=== PATIENT | female | born 1965 | race Caucasian/White ===

== ENCOUNTER 2016-08-31 07:38 | Emergency (ER) | payer MEDICAID ==
[~2016-08-31] VITALS: Ht 154.9 cm; Wt 61.2 kg
[2016-08-31 07:42] VITALS: BP 145/77
== END 2016-08-31 08:17 | disposition home or self-care (01) ==
LOC: ER 07:38
DX: L84 Corns and callosities (principal); M21.611 Bunion of right foot; I10 Essential (primary) hypertension; F17.210 Nicotine dependence, cigarettes, uncomplicated; Z98.51 Tubal ligation status; Z88.0 Allergy status to penicillin

== ENCOUNTER 2016-10-07 19:51 | Emergency (ER) | payer MEDICAID ==
[~2016-10-07] VITALS: Ht 154.9 cm; Wt 63.5 kg
[2016-10-07 20:03] VITALS: BP 149/77
[2016-10-07 21:05] LABS: Basophils # (auto) 0.1 uL; Basophils % (auto) 0.8 % (0.0-2.0); CONDITION Y; Eosinophils # (auto) 0.4 uL; Eosinophils % (auto) 2.8 % (0.0-7.0); Hematocrit 41.1 % (36.0-46.0); Hemoglobin 13.6 g/dL (12.2-16.2); Lymphocytes # (auto) 3.2 uL; Lymphocytes % (auto) 25.1 % (10.0-50.0); Mean Corpuscular Volume 87.8 fL (80.0-100.0); Monocytes # (auto) 0.8 uL; Monocytes % (auto) 6.3 % (0.0-12.0); Neutrophils # (auto) 8.3 uL; Platelet Count (auto) 280 10^3/uL (140-450); Red Cell Distribution Width 14.5 % (11.6-16.0); White Blood Cell 12.7 10^3/uL (4.4-10.8)
[2016-10-07 21:10] LABS: Urine Bilirubin Negative (Negative); Urine Glucose Normal (Normal); Urine Urobilinogen Normal (Negative)
[2016-10-07 21:11] LABS: Urine Blood 1+ /uL (Negative); Urine Ketone Negative (Negative); Urine Nitrite Negative (Negative); Urine RBC 1 /hpf (0 - 4); Urine Squamous Epithelial Cell FEW /hpf (<5); Urine pH 6.5 (5.0-8.0)
[2016-10-07 21:36] LABS: Albumin 3.6 g/dL (3.4-5.0); Alkaline Phosphatase 69 U/L (45-117); Anion Gap 9 (5-15); Aspartate Aminotransferase 14 U/L (15-37); Bilirubin, Total 0.1 mg/dL (0.2-1.0); Blood Urea Nitrogen 12 mg/dL (7-18); Calcium 8.6 mg/dL (8.5-10.1); Carbon Dioxide 25 mmol/L (21-32); Chloride 104 mmol/L (98-107); GFR African American 129 mL/min; GFR Non-African American 107 mL/min; Glucose 94 mg/dL (74-106); Magnesium 2.1 mg/dL (1.6-2.6); Potassium 3.7 mmol/L (3.5-5.1); Sodium 138 mmol/L (136-145); Total Protein 7.3 g/dL (6.4-8.2)
[2016-10-07 21:40] LABS: Urine Color Straw (Yellow)
[2016-10-07 23:01] LABS: INR 0.92 (0.9-1.15); Partial Thromboplastin Time 27.6 sec (22.64-33.71)
== END 2016-10-08 01:55 | disposition left against medical advice (07) ==
LOC: ER 19:52
DX: R07.9 Chest pain, unspecified (principal); Z53.21 Procedure and treatment not carried out due to patient leaving prior to being seen by health care provider
CPT/HCPCS: 36415; 71020; 80053; 81001; 83735; 84443; 84484; 85025; 85610; 85730; 93005

== ENCOUNTER 2016-10-13 17:16 | Emergency (ER) | payer MEDICAID ==
[~2016-10-13] VITALS: Ht 154.9 cm; Wt 61.2 kg
[2016-10-13 18:07] LABS: Basophils # (auto) 0.1 uL; Basophils % (auto) 0.9 % (0.0-2.0); Eosinophils # (auto) 0.3 uL; Eosinophils % (auto) 2.9 % (0.0-7.0); Hematocrit 41.7 % (36.0-46.0); Hemoglobin 14.1 g/dL (12.2-16.2); Lymphocytes # (auto) 4.5 uL; Lymphocytes % (auto) 40.2 % (10.0-50.0); Mean Corpuscular Hemoglobin 29.7 pg (28.0-32.0); Mean Corpuscular Hgb Conc. 33.9 g/dL (32.0-36.0); Mean Corpuscular Volume 87.7 fL (80.0-100.0); Mean Platelet Volume 9.5 fL (7.4-10.4); Monocytes % (auto) 8.8 % (0.0-12.0); Neutrophils # (auto) 5.3 uL; Neutrophils % (auto) 47.2 % (37.0-80.0); Nucleated Red Blood Cells % 0.1 %; Platelet Count (auto) 260 10^3/uL (140-450); Red Cell Distribution Width 14.1 % (11.6-16.0); White Blood Cell 11.2 10^3/uL (4.4-10.8)
[2016-10-13 18:33] LABS: Albumin 3.9 g/dL (3.4-5.0); Alkaline Phosphatase 72 U/L (45-117); Anion Gap 9 (5-15); Aspartate Aminotransferase 14 U/L (15-37); Bilirubin, Total 0.3 mg/dL (0.2-1.0); Blood Urea Nitrogen 12 mg/dL (7-18); Calcium 9.5 mg/dL (8.5-10.1); Carbon Dioxide 26 mmol/L (21-32); Chloride 103 mmol/L (98-107); GFR African American 137 mL/min; GFR Non-African American 113 mL/min; Glucose 95 mg/dL (74-106); Potassium 3.6 mmol/L (3.5-5.1); Sodium 138 mmol/L (136-145); Total Protein 7.8 g/dL (6.4-8.2)
[2016-10-13 22:50] LABS: Urine Bilirubin Negative (Negative); Urine Blood 1+ /uL (Negative); Urine Color Yellow (Yellow); Urine Glucose Normal (Normal); Urine Ketone Negative (Negative); Urine Mucus FEW (None Seen); Urine Nitrite Negative (Negative); Urine RBC 5 /hpf (0 - 4); Urine Squamous Epithelial Cell FEW /hpf (<5); Urine Urobilinogen Normal (Negative)
[2016-10-14] MEDS ORDERED: HYDROcodone-ACET 5/325MG TAB PO ONE
[2016-10-14 00:51] VITALS: BP 135/82
== END 2016-10-14 02:26 | disposition home or self-care (01) ==
LOC: ER 17:31
DX: R07.9 Chest pain, unspecified (principal); R09.1 Pleurisy; M54.2 Cervicalgia; I10 Essential (primary) hypertension; Z88.0 Allergy status to penicillin
CPT/HCPCS: 36415; 71010; 80053; 81001; 84484; 85025; 93005

== ENCOUNTER 2017-04-03 08:12 | Emergency (ER) | payer MEDICAID ==
[~2017-04-03] VITALS: Ht 154.9 cm; Wt 63.5 kg
[2017-04-03 08:12] VITALS: BP 159/87
[2017-04-03 09:34] LABS: Basophils # (auto) 0.1 uL; Eosinophils # (auto) 0.4 uL; Eosinophils % (auto) 3.6 % (0.0-7.0); Hematocrit 42.5 % (36.0-46.0); Hemoglobin 14.1 g/dL (12.2-16.2); Lymphocytes # (auto) 2.9 uL; Lymphocytes % (auto) 23.5 % (10.0-50.0); Mean Corpuscular Hemoglobin 28.7 pg (28.0-32.0); Mean Corpuscular Hgb Conc. 33.2 g/dL (32.0-36.0); Mean Corpuscular Volume 86.5 fL (80.0-100.0); Monocytes # (auto) 0.7 uL; Monocytes % (auto) 5.9 % (0.0-12.0); Neutrophils # (auto) 8.2 uL; Platelet Count (auto) 286 10^3/uL (140-450); Red Blood Cells 4.91 10^6/uL (4.0-5.20); Red Cell Distribution Width 13.7 % (11.8-14.3); White Blood Cell 12.4 10^3/uL (4.4-10.8)
[2017-04-03 09:51] LABS: Alanine Aminotransferase 21 U/L (13-56); Albumin 3.7 g/dL (3.4-5.0); Anion Gap 3 (5-15); Aspartate Aminotransferase 19 U/L (15-37); BUN/Creatinine Ratio 18.2; Blood Urea Nitrogen 12 mg/dL (7-18); Calcium 8.6 mg/dL (8.5-10.1); Carbon Dioxide 31 mmol/L (21-32); Chloride 103 mmol/L (98-107); GFR African American 122 mL/min; GFR Non-African American 101 mL/min; Glucose 92 mg/dL (74-106); Potassium 4.4 mmol/L (3.5-5.1); Sodium 137 mmol/L (136-145)
[2017-04-03 09:56] LABS: Alkaline Phosphatase 73 U/L (45-117); Bilirubin, Total 0.2 mg/dL (0.2-1.0)
== END 2017-04-03 12:52 | disposition left against medical advice (07) ==
LOC: ER 08:12
DX: R07.9 Chest pain, unspecified (principal); I10 Essential (primary) hypertension; F17.210 Nicotine dependence, cigarettes, uncomplicated; Z88.0 Allergy status to penicillin
CPT/HCPCS: 36415; 71046; 80053; 84484; 85025; 93005

== ENCOUNTER 2017-04-05 08:21 | Emergency (ER) | payer MEDICAID ==
[~2017-04-05] VITALS: Ht 154.9 cm; Wt 63.5 kg
[2017-04-05 09:00] VITALS: BP 153/87
[2017-04-05] MEDS ORDERED: KETOROLAC TROMETH 60MG/2ML VIAL IM ONE (09:15)
== END 2017-04-05 09:43 | disposition home or self-care (01) ==
LOC: ER 08:21
DX: S16.1XXA Strain of muscle, fascia and tendon at neck level, initial encounter (principal); M54.12 Radiculopathy, cervical region; F17.210 Nicotine dependence, cigarettes, uncomplicated; F12.10 Cannabis abuse, uncomplicated; I10 Essential (primary) hypertension; Z98.51 Tubal ligation status; Z88.0 Allergy status to penicillin; X58.XXXA Exposure to other specified factors, initial encounter; Y93.89 Activity, other specified; Y99.8 Other external cause status; Y92.89 Other specified places as the place of occurrence of the external cause
CPT/HCPCS: 72040; 93005; 96372; 99284; J1885

== ENCOUNTER 2018-03-25 19:18 | Emergency (ER) | payer MEDICAID ==
[~2018-03-25] VITALS: Ht 154.9 cm; Wt 65.8 kg
[2018-03-25 21:10] VITALS: BP 132/70
[2018-03-26] MEDS ORDERED: methylPREDNISolone SOD SUCC 125 MG/2 ML VL IM ONE
[2018-03-26] MEDS ORDERED: KETOROLAC TROMETH 60MG/2ML VIAL IM ONE
== END 2018-03-26 00:51 | disposition home or self-care (01) ==
LOC: ER 19:28
DX: S43.301A Subluxation of unspecified parts of right shoulder girdle, initial encounter (principal); I10 Essential (primary) hypertension; F17.210 Nicotine dependence, cigarettes, uncomplicated; F12.10 Cannabis abuse, uncomplicated; Z98.51 Tubal ligation status; Z88.0 Allergy status to penicillin; W01.0XXA Fall on same level from slipping, tripping and stumbling without subsequent striking against object, initial encounter; Y93.E8 Activity, other personal hygiene; Y99.8 Other external cause status; Y92.003 Bedroom of unspecified non-institutional (private) residence as the place of occurrence of the external cause
CPT/HCPCS: 72040; 73030; 96372; 99283; J1885; J2930

== ENCOUNTER 2018-06-22 10:31 | Emergency (ER) | payer MEDICAID ==
[~2018-06-22] VITALS: Ht 154.9 cm; Wt 65.8 kg
[2018-06-22] MEDS ORDERED: ASPirin 81 mg TAB PO ONE (11:00)
[2018-06-22 11:36] LABS: Basophils # (auto) 0.1 uL; Eosinophils # (auto) 0.3 uL; Hematocrit 41.1 % (36.0-46.0); Hemoglobin 13.7 g/dL (12.2-16.2); Lymphocytes # (auto) 2.2 uL; Lymphocytes % (auto) 21.1 % (10.0-50.0); Mean Corpuscular Hgb Conc. 33.4 g/dL (32.0-36.0); Mean Corpuscular Volume 86.7 fL (80.0-100.0); Monocytes # (auto) 0.9 uL; Monocytes % (auto) 8.4 % (0.0-12.0); Neutrophils # (auto) 6.8 uL; Neutrophils % (auto) 66.5 % (37.0-80.0); Platelet Count (auto) 235 10^3/uL (140-450); Red Blood Cells 4.75 10^6/uL (4.0-5.20); White Blood Cell 10.3 10^3/uL (4.4-10.8)
[2018-06-22 11:54] LABS: Albumin 3.7 g/dL (3.4-5.0); Anion Gap 5 (5-15); Blood Urea Nitrogen 14 mg/dL (7-18); Calcium 8.8 mg/dL (8.5-10.1); Carbon Dioxide 27 mmol/L (21-32); Chloride 107 mmol/L (98-107); Glucose 91 mg/dL (74-106); Magnesium 2.1 mg/dL (1.6-2.6); Potassium 3.9 mmol/L (3.5-5.1); Sodium 139 mmol/L (136-145)
[2018-06-22 12:00] LABS: Alanine Aminotransferase 23 U/L (13-56); Alkaline Phosphatase 80 U/L (45-117); Aspartate Aminotransferase 20 U/L (15-37); BUN/Creatinine Ratio 21.5; Bilirubin, Total 0.3 mg/dL (0.2-1.0); GFR African American 124 mL/min; GFR Non-African American 102 mL/min; Total Protein 7.7 g/dL (6.4-8.2)
[2018-06-22 13:49] VITALS: BP 124/89
== END 2018-06-22 14:33 | disposition home or self-care (01) ==
LOC: ER 10:33
DX: R07.89 Other chest pain (principal); F41.9 Anxiety disorder, unspecified; I10 Essential (primary) hypertension; F17.210 Nicotine dependence, cigarettes, uncomplicated; F12.10 Cannabis abuse, uncomplicated; R42 Dizziness and giddiness; Z88.0 Allergy status to penicillin
CPT/HCPCS: 36415; 70450; 71045; 80053; 83735; 84484; 85025; 93005; 94761

== ENCOUNTER 2019-07-25 13:07 | Emergency (ER) | payer MEDICAID ==
[~2019-07-25] VITALS: Ht 154.9 cm; Wt 65.8 kg
[2019-07-25 13:45] LABS: Basophils # (auto) 0.1 10 ^3/uL (0-0.2); Eosinophils # (auto) 0.4 10 ^3/uL (0-0.8); Eosinophils % (auto) 2.8 % (0.0-7.0); Hematocrit 42.3 % (36.0-46.0); Hemoglobin 13.9 g/dL (12.2-16.2); Lymphocytes # (auto) 2.4 10 ^3/uL (0.4-5.4); Lymphocytes % (auto) 17.9 % (10.0-50.0); Mean Corpuscular Hemoglobin 28.5 pg (28.0-32.0); Mean Corpuscular Hgb Conc. 32.8 g/dL (32.0-36.0); Mean Corpuscular Volume 86.8 fL (80.0-100.0); Monocytes # (auto) 0.9 10 ^3/uL (0-1.3); Monocytes % (auto) 6.6 % (0.0-12.0); Neutrophils # (auto) 9.6 10 ^3/uL (1.6-8.6); Neutrophils % (auto) 71.7 % (37.0-80.0); Nucleated Red Blood Cells % 0.1 %; Platelet Count (auto) 258 10^3/uL (140-450); Red Blood Cells 4.87 10^6/uL (4.0-5.20); Red Cell Distribution Width 14.1 % (11.8-14.3); White Blood Cell 13.4 10^3/uL (4.4-10.8)
[2019-07-25] MEDS ORDERED: traMADol HCL 50 MG TAB PO ONE (14:00)
[2019-07-25 14:02] LABS: Alanine Aminotransferase 20 U/L (13-56); Albumin 3.8 g/dL (3.4-5.0); Anion Gap 6 (5-15); Aspartate Aminotransferase 19 U/L (15-37); BUN/Creatinine Ratio 20.5; Blood Urea Nitrogen 24 mg/dL (7-18); Calcium 8.7 mg/dL (8.5-10.1); Carbon Dioxide 24 mmol/L (21-32); Chloride 104 mmol/L (98-107); GFR African American 62 mL/min; GFR Non-African American 52 mL/min; Glucose 101 mg/dL (74-106); Magnesium 2.1 mg/dL (1.6-2.6); Potassium 4.1 mmol/L (3.5-5.1); Sodium 134 mmol/L (136-145)
[2019-07-25 14:07] LABS: Alkaline Phosphatase 87 U/L (45-117); Bilirubin, Total 0.4 mg/dL (0.2-1.0); Total Protein 7.7 g/dL (6.4-8.2)
[2019-07-25 17:29] VITALS: BP 159/86
== END 2019-07-25 17:56 | disposition home or self-care (01) ==
LOC: ER 13:07
DX: R07.89 Other chest pain (principal); M54.9 Dorsalgia, unspecified; I10 Essential (primary) hypertension; F17.210 Nicotine dependence, cigarettes, uncomplicated
CPT/HCPCS: 36415; 71046; 80053; 83735; 84484; 85025; 93005

== ENCOUNTER 2019-07-26 20:10 | Emergency (ER) | payer MEDICAID | END 2019-07-26 21:22 | disposition left against medical advice (07) | LOC: ER 20:10 | DX: R10.9 Unspecified abdominal pain (principal); Z53.21 Procedure and treatment not carried out due to patient leaving prior to being seen by health care provider ==

== ENCOUNTER 2019-07-27 06:58 | Emergency (ER) | payer MEDICAID ==
[~2019-07-27] VITALS: Ht 152.4 cm; Wt 65.8 kg
[2019-07-27 07:40] VITALS: BP 120/65
[2019-07-27 07:58] LABS: Urine Bacteria FEW /hpf (None Seen); Urine Blood 2+ /uL (Negative); Urine Hyaline Cast FEW /lpf (0 - 2); Urine Mucus FEW (None Seen); Urine Specific Gravity 1.022 (1.001-1.035); Urine WBC 6 /hpf (0 - 5)
[2019-07-27] MEDS ORDERED: SODIUM CHLORIDE 0.9% 1,000 ML IV ONE ×2 (08:09)
[2019-07-27 08:29] LABS: Basophils # (auto) 0.1 10 ^3/uL (0-0.2); Basophils % (auto) 1.2 % (0.0-2.0); Eosinophils # (auto) 0.3 10 ^3/uL (0-0.8); Eosinophils % (auto) 3.9 % (0.0-7.0); Hematocrit 41.8 % (36.0-46.0); Hemoglobin 14.3 g/dL (12.2-16.2); Lymphocytes # (auto) 2.3 10 ^3/uL (0.4-5.4); Mean Corpuscular Hemoglobin 29.5 pg (28.0-32.0); Mean Corpuscular Hgb Conc. 34.1 g/dL (32.0-36.0); Mean Corpuscular Volume 86.7 fL (80.0-100.0); Monocytes # (auto) 0.7 10 ^3/uL (0-1.3); Monocytes % (auto) 8.1 % (0.0-12.0); Neutrophils # (auto) 4.9 10 ^3/uL (1.6-8.6); Neutrophils % (auto) 58.8 % (37.0-80.0); Nucleated Red Blood Cells % 0.1 %; Platelet Count (auto) 257 10^3/uL (140-450); Red Blood Cells 4.83 10^6/uL (4.0-5.20); Red Cell Distribution Width 13.8 % (11.8-14.3); White Blood Cell 8.3 10^3/uL (4.4-10.8)
[2019-07-27 08:43] LABS: Alanine Aminotransferase 19 U/L (13-56); Albumin 3.8 g/dL (3.4-5.0); Anion Gap 7 (5-15); Aspartate Aminotransferase 16 U/L (15-37); BUN/Creatinine Ratio 24.7; Blood Urea Nitrogen 19 mg/dL (7-18); Calcium 8.9 mg/dL (8.5-10.1); Carbon Dioxide 25 mmol/L (21-32); Chloride 108 mmol/L (98-107); GFR African American 101 mL/min; GFR Non-African American 84 mL/min; Glucose 89 mg/dL (74-106); Potassium 4.1 mmol/L (3.5-5.1); Sodium 140 mmol/L (136-145)
[2019-07-27 08:47] LABS: Alkaline Phosphatase 77 U/L (45-117); Bilirubin, Total 0.5 mg/dL (0.2-1.0); Total Protein 7.7 g/dL (6.4-8.2)
== END 2019-07-27 09:52 | disposition home or self-care (01) ==
LOC: ER 06:58
DX: N20.0 Calculus of kidney (principal); R31.9 Hematuria, unspecified; E86.0 Dehydration; F17.210 Nicotine dependence, cigarettes, uncomplicated; I10 Essential (primary) hypertension; Z98.51 Tubal ligation status; Z88.0 Allergy status to penicillin
CPT/HCPCS: 36415; 74176; 80053; 81001; 84484; 85025; 93005; 96360; 99285; J7030

== ENCOUNTER 2020-05-03 15:59 | Emergency (ER) | payer MEDICAID ==
[~2020-05-03] VITALS: Ht 152.4 cm; Wt 67.1 kg
[2020-05-03 16:50] LABS: Basophils # (auto) 0.1 10 ^3/uL (0-0.2); Basophils % (auto) 0.9 % (0.0-2.0); Eosinophils # (auto) 0.2 10 ^3/uL (0-0.8); Eosinophils % (auto) 2.2 % (0.0-7.0); Hematocrit 39.9 % (36.0-46.0); Hemoglobin 13.7 g/dL (12.2-16.2); Lymphocytes # (auto) 3.1 10 ^3/uL (0.4-5.4); Lymphocytes % (auto) 29.1 % (10.0-50.0); Mean Corpuscular Hemoglobin 29.9 pg (28.0-32.0); Mean Corpuscular Hgb Conc. 34.3 g/dL (32.0-36.0); Mean Corpuscular Volume 87.2 fL (80.0-100.0); Monocytes # (auto) 0.7 10 ^3/uL (0-1.3); Neutrophils # (auto) 6.5 10 ^3/uL (1.6-8.6); Neutrophils % (auto) 60.8 % (37.0-80.0); Nucleated Red Blood Cells % 0.1 %; Platelet Count (auto) 228 10^3/uL (140-450); Red Blood Cells 4.57 10^6/uL (4.0-5.20); Red Cell Distribution Width 13.7 % (11.8-14.3); White Blood Cell 10.6 10^3/uL (4.4-10.8)
[2020-05-03 17:04] LABS: Alanine Aminotransferase 20 U/L (13-56); Albumin 3.9 g/dL (3.4-5.0); Anion Gap 8 (5-15); Aspartate Aminotransferase 19 U/L (15-37); BUN/Creatinine Ratio 18.8; Blood Urea Nitrogen 13 mg/dL (7-18); Calcium 8.6 mg/dL (8.5-10.1); Carbon Dioxide 27 mmol/L (21-32); Chloride 103 mmol/L (98-107); GFR African American 114 mL/min; GFR Non-African American 95 mL/min; Glucose 94 mg/dL (74-106); Potassium 3.7 mmol/L (3.5-5.1); Sodium 138 mmol/L (136-145)
[2020-05-03 17:09] LABS: Alkaline Phosphatase 84 U/L (45-117); Bilirubin, Total 0.3 mg/dL (0.2-1.0); Total Protein 7.5 g/dL (6.4-8.2)
[2020-05-03 18:41] VITALS: BP 155/93
== END 2020-05-03 20:34 | disposition home or self-care (01) ==
LOC: ER 16:01
DX: I10 Essential (primary) hypertension (principal); F17.210 Nicotine dependence, cigarettes, uncomplicated; F12.10 Cannabis abuse, uncomplicated; Z88.0 Allergy status to penicillin; Z98.51 Tubal ligation status
CPT/HCPCS: 36415; 71046; 80053; 84484; 85025; 93005

== ENCOUNTER 2020-05-09 21:29 | Emergency (ER) | payer MEDICAID ==
[~2020-05-09] VITALS: Ht 152.4 cm; Wt 68.0 kg
[2020-05-09 22:58] LABS: Basophils # (auto) 0.1 10 ^3/uL (0-0.2); Basophils % (auto) 1.1 % (0.0-2.0); Eosinophils # (auto) 0.2 10 ^3/uL (0-0.8); Hematocrit 41.4 % (36.0-46.0); Lymphocytes % (auto) 25.9 % (10.0-50.0); Mean Corpuscular Hemoglobin 29.3 pg (28.0-32.0); Mean Corpuscular Volume 86.2 fL (80.0-100.0); Monocytes # (auto) 0.9 10 ^3/uL (0-1.3); Monocytes % (auto) 7.3 % (0.0-12.0); Neutrophils # (auto) 7.5 10 ^3/uL (1.6-8.6); Neutrophils % (auto) 63.7 % (37.0-80.0); Nucleated Red Blood Cells % 0.1 %; Platelet Count (auto) 254 10^3/uL (140-450); Red Cell Distribution Width 13.8 % (11.8-14.3); White Blood Cell 11.7 10^3/uL (4.4-10.8)
[2020-05-09 23:19] LABS: Anion Gap 7 (5-15); Blood Urea Nitrogen 14 mg/dL (7-18); Calcium 9.2 mg/dL (8.5-10.1); Carbon Dioxide 24 mmol/L (21-32); Chloride 108 mmol/L (98-107); Glucose 112 mg/dL (74-106); Potassium 3.9 mmol/L (3.5-5.1); Sodium 139 mmol/L (136-145)
[2020-05-09 23:26] LABS: Alanine Aminotransferase 21 U/L (13-56); Alkaline Phosphatase 87 U/L (45-117); Aspartate Aminotransferase 17 U/L (15-37); BUN/Creatinine Ratio 24.1; Bilirubin, Total 0.3 mg/dL (0.2-1.0); GFR African American 140 mL/min; GFR Non-African American 116 mL/min; Total Protein 7.8 g/dL (6.4-8.2)
[2020-05-10 00:10] VITALS: BP 138/79
== END 2020-05-10 00:17 | disposition home or self-care (01) ==
LOC: ER 21:29
DX: S66.912A Strain of unspecified muscle, fascia and tendon at wrist and hand level, left hand, initial encounter (principal); S66.911A Strain of unspecified muscle, fascia and tendon at wrist and hand level, right hand, initial encounter; M47.812 Spondylosis without myelopathy or radiculopathy, cervical region; I10 Essential (primary) hypertension; F17.210 Nicotine dependence, cigarettes, uncomplicated; Z88.0 Allergy status to penicillin; X58.XXXA Exposure to other specified factors, initial encounter; Y93.89 Activity, other specified; Y92.89 Other specified places as the place of occurrence of the external cause; Y99.8 Other external cause status
CPT/HCPCS: 36415; 72125; 73090; 80053; 84484; 85025; 93005

== ENCOUNTER 2020-05-13 16:00 | Emergency (ER) | payer MEDICAID ==
[~2020-05-13] VITALS: Ht 152.4 cm; Wt 67.1 kg
[2020-05-13 16:03] VITALS: BP 157/86
== END 2020-05-13 21:08 | disposition home or self-care (01) ==
LOC: ER 16:00
DX: E04.1 Nontoxic single thyroid nodule (principal); I10 Essential (primary) hypertension; Z88.0 Allergy status to penicillin
CPT/HCPCS: 70490

== ENCOUNTER 2020-05-17 17:03 | Emergency (ER) | payer MEDICAID ==
[~2020-05-17] VITALS: Ht 152.4 cm; Wt 65.8 kg
[2020-05-17 17:33] VITALS: BP 136/79
== END 2020-05-17 20:56 | disposition home or self-care (01) ==
LOC: ER 17:07
DX: M48.02 Spinal stenosis, cervical region (principal); R20.2 Paresthesia of skin; Z88.0 Allergy status to penicillin
CPT/HCPCS: 93005

== ENCOUNTER 2020-05-20 19:51 | Emergency (ER) | payer MEDICAID ==
[~2020-05-20] VITALS: Ht 152.4 cm; Wt 67.1 kg
[2020-05-20 20:07] VITALS: BP 158/78
== END 2020-05-20 23:31 | disposition left against medical advice (07) ==
LOC: ER 19:56
DX: M54.5 Low back pain (principal); Z53.21 Procedure and treatment not carried out due to patient leaving prior to being seen by health care provider
CPT/HCPCS: 72100; 72170

== ENCOUNTER 2020-05-21 08:32 | Emergency (ER) | payer MEDICAID ==
[~2020-05-21] VITALS: Ht 152.4 cm; Wt 67.1 kg
[2020-05-21 09:30] LABS: Urine Bacteria FEW /hpf (None Seen); Urine Blood 2+ /uL (Negative); Urine Specific Gravity 1.009 (1.001-1.035); Urine WBC <1 /hpf (0 - 5)
[2020-05-21] MEDS ORDERED: CARISOPRODOL 350 MG TAB PO ONE (09:30)
[2020-05-21 09:47] LABS: Basophils # (auto) 0.1 10 ^3/uL (0-0.2); Eosinophils # (auto) 0.2 10 ^3/uL (0-0.8); Eosinophils % (auto) 1.7 % (0.0-7.0); Hematocrit 43.5 % (36.0-46.0); Hemoglobin 14.6 g/dL (12.2-16.2); Lymphocytes # (auto) 2.3 10 ^3/uL (0.4-5.4); Lymphocytes % (auto) 20.3 % (10.0-50.0); Mean Corpuscular Hemoglobin 29.2 pg (28.0-32.0); Mean Corpuscular Hgb Conc. 33.6 g/dL (32.0-36.0); Monocytes # (auto) 0.8 10 ^3/uL (0-1.3); Monocytes % (auto) 7.2 % (0.0-12.0); Neutrophils # (auto) 7.8 10 ^3/uL (1.6-8.6); Neutrophils % (auto) 69.8 % (37.0-80.0); Nucleated Red Blood Cells % 0.1 %; Platelet Count (auto) 261 10^3/uL (140-450); Red Blood Cells 4.99 10^6/uL (4.0-5.20); White Blood Cell 11.2 10^3/uL (4.4-10.8)
[2020-05-21 10:10] LABS: Calcium 9.4 mg/dL (8.5-10.1); Potassium 3.9 mmol/L (3.5-5.1)
[2020-05-21 10:13] LABS: BUN/Creatinine Ratio 23.9; Bilirubin, Total 0.3 mg/dL (0.2-1.0); Total Protein 7.7 g/dL (6.4-8.2)
[2020-05-21 11:26] VITALS: BP 126/76
== END 2020-05-21 11:39 | disposition home or self-care (01) ==
LOC: ER 08:32
DX: S39.011A Strain of muscle, fascia and tendon of abdomen, initial encounter (principal); E86.0 Dehydration; N28.89 Other specified disorders of kidney and ureter; N28.9 Disorder of kidney and ureter, unspecified; F17.210 Nicotine dependence, cigarettes, uncomplicated; I10 Essential (primary) hypertension; Z88.0 Allergy status to penicillin; F12.10 Cannabis abuse, uncomplicated; M79.18 Myalgia, other site; X58.XXXA Exposure to other specified factors, initial encounter; Y93.89 Activity, other specified; Y92.89 Other specified places as the place of occurrence of the external cause; Y99.8 Other external cause status
CPT/HCPCS: 36415; 74176; 80053; 81001; 85025; 93005

== ENCOUNTER 2020-05-26 12:42 | Emergency (ER) | payer MEDICAID ==
[~2020-05-26] VITALS: Ht 152.4 cm; Wt 67.1 kg
[2020-05-26 13:07] VITALS: BP 134/77
[2020-05-26 13:47] LABS: Urine WBC None Seen /hpf (0 - 5)
[2020-05-26 13:53] LABS: Urine Bacteria NONE SEEN /hpf (None Seen); Urine Blood 1+ /uL (Negative); Urine Mucus FEW (None Seen); Urine Specific Gravity 1.002 (1.001-1.035)
== END 2020-05-26 15:09 | disposition home or self-care (01) ==
LOC: ER 12:42
DX: N28.9 Disorder of kidney and ureter, unspecified (principal); R82.90 Unspecified abnormal findings in urine; F17.210 Nicotine dependence, cigarettes, uncomplicated; I10 Essential (primary) hypertension; Z88.0 Allergy status to penicillin
CPT/HCPCS: 81001

== ENCOUNTER 2020-12-23 07:25 | Emergency (ER) | payer MEDICAID ==
[~2020-12-23] VITALS: Ht 154.9 cm; Wt 68.0 kg
[2020-12-23 08:04] LABS: Basophils # (auto) 0.1 10 ^3/uL (0-0.2); Basophils % (auto) 0.9 % (0.0-2.0); Eosinophils # (auto) 0.2 10 ^3/uL (0-0.8); Eosinophils % (auto) 2.6 % (0.0-7.0); Hemoglobin 14.1 g/dL (12.2-16.2); Lymphocytes # (auto) 2.1 10 ^3/uL (0.4-5.4); Lymphocytes % (auto) 21.9 % (10.0-50.0); Mean Corpuscular Hemoglobin 28.7 pg (28.0-32.0); Mean Corpuscular Hgb Conc. 32.8 g/dL (32.0-36.0); Mean Corpuscular Volume 87.6 fL (80.0-100.0); Monocytes # (auto) 0.6 10 ^3/uL (0-1.3); Monocytes % (auto) 6.1 % (0.0-12.0); Neutrophils # (auto) 6.6 10 ^3/uL (1.6-8.6); Neutrophils % (auto) 68.5 % (37.0-80.0); Red Blood Cells 4.91 10^6/uL (4.0-5.20); Red Cell Distribution Width 13.8 % (11.8-14.3); White Blood Cell 9.6 10^3/uL (4.4-10.8)
[2020-12-23 08:08] LABS: Urine Bacteria FEW /hpf (None Seen); Urine Blood 1+ /uL (Negative); Urine Specific Gravity 1.006 (1.001-1.035); Urine WBC <1 /hpf (0 - 5)
[2020-12-23 08:16] LABS: Calcium 9.6 mg/dL (8.5-10.1); Potassium 4.4 mmol/L (3.5-5.1)
[2020-12-23 08:22] LABS: BUN/Creatinine Ratio 19.7; Bilirubin, Total 0.3 mg/dL (0.2-1.0); Total Protein 7.7 g/dL (6.4-8.2)
[2020-12-23 08:35] VITALS: BP 168/74
[2020-12-23] MEDS ORDERED: ONDANSETRON ODT 4 MG TAB PO ONE (09:30)
[2020-12-23] MEDS ORDERED: HYDROcodone-ACET 10/325MG TAB PO ONE (09:30)
== END 2020-12-23 10:05 | disposition home or self-care (01) ==
LOC: ER 07:25
DX: S29.012A Strain of muscle and tendon of back wall of thorax, initial encounter (principal); I10 Essential (primary) hypertension; E03.9 Hypothyroidism, unspecified; F17.210 Nicotine dependence, cigarettes, uncomplicated; Z88.0 Allergy status to penicillin; X58.XXXA Exposure to other specified factors, initial encounter; Y93.89 Activity, other specified; Y92.89 Other specified places as the place of occurrence of the external cause; Y99.8 Other external cause status
CPT/HCPCS: 36415; 72070; 80053; 81001; 85025; 99284; Q0162

== ENCOUNTER 2020-12-25 09:01 | Emergency (ER) | payer MEDICAID ==
[~2020-12-25] VITALS: Ht 154.9 cm; Wt 67.1 kg
[2020-12-25 09:27] VITALS: BP 152/70
[2020-12-25 10:00] LABS: Urine WBC None Seen /hpf (0 - 5)
[2020-12-25 10:08] LABS: Urine Bacteria NONE SEEN /hpf (None Seen); Urine Blood 1+ /uL (Negative); Urine Specific Gravity 1.007 (1.001-1.035)
[2020-12-25 10:28] LABS: Albumin 3.8 g/dL (3.4-5.0); Basophils # (auto) 0.1 10 ^3/uL (0-0.2); Basophils % (auto) 0.8 % (0.0-2.0); Calcium 9.2 mg/dL (8.5-10.1); Eosinophils # (auto) 0.2 10 ^3/uL (0-0.8); Eosinophils % (auto) 2.1 % (0.0-7.0); Hematocrit 43.7 % (36.0-46.0); Hemoglobin 14.1 g/dL (12.2-16.2); Lymphocytes # (auto) 2.8 10 ^3/uL (0.4-5.4); Lymphocytes % (auto) 22.9 % (10.0-50.0); Mean Corpuscular Hemoglobin 28.6 pg (28.0-32.0); Mean Corpuscular Hgb Conc. 32.2 g/dL (32.0-36.0); Mean Corpuscular Volume 88.9 fL (80.0-100.0); Monocytes # (auto) 0.8 10 ^3/uL (0-1.3); Monocytes % (auto) 6.5 % (0.0-12.0); Neutrophils # (auto) 8.2 10 ^3/uL (1.6-8.6); Neutrophils % (auto) 67.7 % (37.0-80.0); Nucleated Red Blood Cells % 0.4 %; Red Blood Cells 4.92 10^6/uL (4.0-5.20); Red Cell Distribution Width 13.9 % (11.8-14.3)
[2020-12-25 10:32] LABS: Bilirubin, Total 0.4 mg/dL (0.2-1.0); Total Protein 7.8 g/dL (6.4-8.2)
== END 2020-12-25 15:17 | disposition left against medical advice (07) ==
LOC: ER 09:01
DX: N20.0 Calculus of kidney (principal); I10 Essential (primary) hypertension; E03.9 Hypothyroidism, unspecified; F17.210 Nicotine dependence, cigarettes, uncomplicated; Z88.0 Allergy status to penicillin
CPT/HCPCS: 36415; 74176; 80053; 81001; 85025; 93005

== ENCOUNTER 2021-05-08 11:46 | Emergency (ER) | payer MEDICAID ==
[~2021-05-08] VITALS: Ht 154.9 cm; Wt 68.0 kg
[2021-05-08 11:59] VITALS: BP 151/90
== END 2021-05-08 12:21 | disposition left against medical advice (07) ==
LOC: ER 11:46
DX: R51.9 Headache, unspecified (principal); Z53.21 Procedure and treatment not carried out due to patient leaving prior to being seen by health care provider

== ENCOUNTER 2021-05-10 16:03 | Emergency (ER) | payer MEDICAID ==
[~2021-05-10] VITALS: Ht 154.9 cm; Wt 69.9 kg
[2021-05-10 16:59] LABS: Basophils # (auto) 0.1 10 ^3/uL (0-0.2); Basophils % (auto) 0.8 % (0.0-2.0); Eosinophils # (auto) 0.3 10 ^3/uL (0-0.8); Eosinophils % (auto) 1.9 % (0.0-7.0); Hematocrit 40.6 % (36.0-46.0); Hemoglobin 13.8 g/dL (12.2-16.2); Lymphocytes # (auto) 2.7 10 ^3/uL (0.4-5.4); Lymphocytes % (auto) 20.4 % (10.0-50.0); Mean Corpuscular Hemoglobin 29.2 pg (28.0-32.0); Mean Corpuscular Volume 85.9 fL (80.0-100.0); Monocytes % (auto) 7.7 % (0.0-12.0); Neutrophils # (auto) 9.3 10 ^3/uL (1.6-8.6); Neutrophils % (auto) 69.2 % (37.0-80.0); Nucleated Red Blood Cells % 0.1 %; Red Blood Cells 4.72 10^6/uL (4.0-5.20); Red Cell Distribution Width 13.7 % (11.8-14.3); White Blood Cell 13.5 10^3/uL (4.4-10.8)
[2021-05-10 17:03] LABS: Urine Bacteria FEW /hpf (None Seen); Urine Blood 1+ /uL (Negative); Urine Specific Gravity 1.003 (1.001-1.035); Urine WBC <1 /hpf (0 - 5)
[2021-05-10] MEDS ORDERED: cefTRIAXone W LIDOCAINE 1 GM IM IM ONE (17:30)
[2021-05-10 17:33] LABS: Anion Gap 5 (5-15); Blood Urea Nitrogen 13 mg/dL (7-18); Calcium 9.6 mg/dL (8.5-10.1); Carbon Dioxide 28 mmol/L (21-32); Chloride 106 mmol/L (98-107); Glucose 94 mg/dL (74-106); Potassium 3.5 mmol/L (3.5-5.1); Sodium 139 mmol/L (136-145)
[2021-05-10 17:35] LABS: Alanine Aminotransferase 22 U/L (13-56); Aspartate Aminotransferase 15 U/L (15-37); BUN/Creatinine Ratio 18.8; GFR African American 114 mL/min; GFR Non-African American 94 mL/min
[2021-05-10 17:40] LABS: Alkaline Phosphatase 80 U/L (45-117); Bilirubin, Total 0.3 mg/dL (0.2-1.0)
[2021-05-10 21:37] VITALS: BP 140/74
== END 2021-05-10 21:40 | disposition home or self-care (01) ==
LOC: ER 16:03
DX: S39.013A Strain of muscle, fascia and tendon of pelvis, initial encounter (principal); R42 Dizziness and giddiness; F41.9 Anxiety disorder, unspecified; M79.10 Myalgia, unspecified site; I10 Essential (primary) hypertension; E11.9 Type 2 diabetes mellitus without complications; E03.9 Hypothyroidism, unspecified; F17.210 Nicotine dependence, cigarettes, uncomplicated; X58.XXXA Exposure to other specified factors, initial encounter; Y93.89 Activity, other specified; Y92.89 Other specified places as the place of occurrence of the external cause; Y99.8 Other external cause status
CPT/HCPCS: 36415; 70450; 71045; 74176; 80053; 81001; 84484; 85025; 96372; 99285; J0696; 93005

== ENCOUNTER 2021-07-31 07:25 | Emergency (ER) | payer MEDICAID ==
[~2021-07-31] VITALS: Ht 154.9 cm; Wt 67.1 kg
[2021-07-31 07:45] VITALS: BP 140/74
[2021-07-31] MEDS ORDERED: KETOROLAC TROMETH 60MG/2ML VIAL IM ONE (09:00)
[2021-07-31 09:56] LABS: Urine Bacteria NONE SEEN /hpf (None Seen); Urine Blood 3+ /uL (Negative); Urine Mucus FEW (None Seen); Urine Specific Gravity 1.022 (1.001-1.035); Urine WBC 2 /hpf (0 - 5)
[2021-07-31 10:06] LABS: Calcium 9.2 mg/dL (8.5-10.1); Potassium 3.9 mmol/L (3.5-5.1)
[2021-07-31 10:09] LABS: BUN/Creatinine Ratio 17.3; Bilirubin, Total 0.4 mg/dL (0.2-1.0); Total Protein 7.9 g/dL (6.4-8.2)
[2021-07-31 10:12] LABS: Basophils # (auto) 0.1 10 ^3/uL (0-0.2); Basophils % (auto) 0.8 % (0.0-2.0); Eosinophils # (auto) 0.2 10 ^3/uL (0-0.8); Eosinophils % (auto) 1.9 % (0.0-7.0); Hematocrit 41.5 % (36.0-46.0); Hemoglobin 13.8 g/dL (12.2-16.2); Lymphocytes # (auto) 2.3 10 ^3/uL (0.4-5.4); Lymphocytes % (auto) 21.2 % (10.0-50.0); Mean Corpuscular Hemoglobin 29.1 pg (28.0-32.0); Mean Corpuscular Hgb Conc. 33.3 g/dL (32.0-36.0); Mean Corpuscular Volume 87.2 fL (80.0-100.0); Monocytes # (auto) 0.8 10 ^3/uL (0-1.3); Neutrophils # (auto) 7.5 10 ^3/uL (1.6-8.6); Neutrophils % (auto) 69.1 % (37.0-80.0); Red Blood Cells 4.76 10^6/uL (4.0-5.20); Red Cell Distribution Width 14.1 % (11.8-14.3); White Blood Cell 10.8 10^3/uL (4.4-10.8)
[2021-07-31] MEDS ORDERED: TAM04C PO (10:28)
[2021-07-31] MEDS ORDERED: IBUP800T27 PO (10:28)
== END 2021-07-31 10:33 | disposition home or self-care (01) ==
LOC: ER 07:25
DX: N20.0 Calculus of kidney (principal); N28.89 Other specified disorders of kidney and ureter; N28.1 Cyst of kidney, acquired
CPT/HCPCS: 36415; 74176; 80053; 81001; 83690; 85025; 96372; 99284; J1885

== ENCOUNTER 2021-09-11 14:28 | Emergency (ER) | payer MEDICAID ==
[~2021-09-11] VITALS: Ht 154.9 cm; Wt 65.9 kg
[~2021-09-11 14:28] MED LIST: IBUP800T27 PO; TAM04C PO
[2021-09-11] MEDS ORDERED: ASPirin 81 mg TAB PO ONE (14:45)
[2021-09-11 15:48] LABS: Basophils # (auto) 0.1 10 ^3/uL (0-0.2); Basophils % (auto) 1.1 % (0.0-2.0); Eosinophils # (auto) 0.2 10 ^3/uL (0-0.8); Eosinophils % (auto) 2.3 % (0.0-7.0); Hematocrit 38.6 % (36.0-46.0); Hemoglobin 12.6 g/dL (12.2-16.2); Lymphocytes # (auto) 2.7 10 ^3/uL (0.4-5.4); Lymphocytes % (auto) 25.7 % (10.0-50.0); Mean Corpuscular Hemoglobin 28.4 pg (28.0-32.0); Mean Corpuscular Hgb Conc. 32.8 g/dL (32.0-36.0); Mean Corpuscular Volume 86.6 fL (80.0-100.0); Monocytes # (auto) 0.7 10 ^3/uL (0-1.3); Monocytes % (auto) 6.7 % (0.0-12.0); Neutrophils # (auto) 6.7 10 ^3/uL (1.6-8.6); Neutrophils % (auto) 64.2 % (37.0-80.0); Red Blood Cells 4.45 10^6/uL (4.0-5.20); Red Cell Distribution Width 13.8 % (11.8-14.3); White Blood Cell 10.5 10^3/uL (4.4-10.8)
[2021-09-11] MEDS ORDERED: IBUPROFEN 800 MG TAB PO ONE (15:48)
[2021-09-11 16:25] LABS: Albumin 3.7 g/dL (3.4-5.0); Calcium 8.6 mg/dL (8.5-10.1); Potassium 3.5 mmol/L (3.5-5.1)
[2021-09-11 16:26] LABS: Bilirubin, Total 0.2 mg/dL (0.2-1.0); Total Protein 6.9 g/dL (6.4-8.2)
[2021-09-11] MEDS ORDERED: IBU600T PO (16:41)
[2021-09-11] MEDS ORDERED: KETOROLAC TROMETH 60MG/2ML VIAL IM ONE (16:45)
[2021-09-11 16:46] LABS: Urine WBC None Seen /hpf (0 - 5)
[2021-09-11 16:50] VITALS: BP 136/71
[2021-09-11 17:03] LABS: Urine Bacteria NONE SEEN /hpf (None Seen); Urine Blood TRACE /uL (Negative); Urine Specific Gravity 1.002 (1.001-1.035)
== END 2021-09-11 16:58 | disposition home or self-care (01) ==
LOC: ER 14:28
DX: R07.89 Other chest pain (principal); I10 Essential (primary) hypertension; E11.9 Type 2 diabetes mellitus without complications; E03.9 Hypothyroidism, unspecified; F17.210 Nicotine dependence, cigarettes, uncomplicated; Z79.1 Long term (current) use of non-steroidal anti-inflammatories (NSAID); Z79.899 Other long term (current) drug therapy; Z88.0 Allergy status to penicillin
CPT/HCPCS: 36415; 71045; 80053; 81001; 84484; 85025; 93005

== ENCOUNTER 2022-09-19 07:29 | Emergency (ER) | payer MEDICAID ==
[~2022-09-19] VITALS: Ht 154.9 cm; Wt 60.8 kg
[~2022-09-19 07:29] MED LIST changes: +IBU600T PO; +IBUP-1456 PO; -IBUP800T27 PO; -TAM04C PO; +TAMS-35 PO; +ZOFR4T PO
[2022-09-19 07:32] VITALS: BP 169/80; PULSE 77; RESP 20; O2SAT 99
[2022-09-19 08:19] LABS: Urine Bacteria FEW /hpf (None Seen); Urine Blood 2+ /uL (Negative); Urine Clarity Clear (Clear); Urine Color Yellow (Yellow); Urine Protein, UAD Negative (Negative); Urine Specific Gravity 1.017 (1.001-1.035); Urine Urobilinogen Normal (Negative); Urine WBC 1 /hpf (0 - 5)
[2022-09-19 08:21] LABS: Basophils # (auto) 0.1 10 ^3/uL (0-0.2); Eosinophils # (auto) 0.2 10 ^3/uL (0-0.8); Eosinophils % (auto) 1.4 % (0.0-7.0); Hematocrit 42.1 % (36.0-46.0); Hemoglobin 13.9 g/dL (12.2-16.2); Lymphocytes # (auto) 2.6 10 ^3/uL (0.4-5.4); Lymphocytes % (auto) 22.9 % (10.0-50.0); Mean Corpuscular Hemoglobin 28.8 pg (28.0-32.0); Mean Corpuscular Hgb Conc. 33.1 g/dL (32.0-36.0); Mean Corpuscular Volume 87.2 fL (80.0-100.0); Monocytes # (auto) 0.7 10 ^3/uL (0-1.3); Monocytes % (auto) 6.3 % (0.0-12.0); Neutrophils # (auto) 7.8 10 ^3/uL (1.6-8.6); Neutrophils % (auto) 68.4 % (37.0-80.0); Red Blood Cells 4.83 10^6/uL (4.0-5.20); Red Cell Distribution Width 14.3 % (11.8-14.3); White Blood Cell 11.5 10^3/uL (4.4-10.8)
[2022-09-19] MEDS ORDERED: SODIUM CHLORIDE 0.9% 1,000 ML IV ONE (08:30)
[2022-09-19] MEDS ORDERED: KETOROLAC TROMETH 30 MG/ML 1ML VIAL IV ONE (08:30)
[2022-09-19 08:42] LABS: Albumin 3.8 g/dL (3.4-5.0); Calcium 9.1 mg/dL (8.5-10.1); Potassium 3.8 mmol/L (3.5-5.1)
[2022-09-19 08:47] LABS: BUN/Creatinine Ratio 19.2 (10.0-20.0); Bilirubin, Total 0.3 mg/dL (0.2-1.0)
== END 2022-09-19 10:23 | disposition home or self-care (01) ==
LOC: ER 07:29
DX: R10.9 Unspecified abdominal pain (principal); R30.0 Dysuria; R35.0 Frequency of micturition; I10 Essential (primary) hypertension; E11.9 Type 2 diabetes mellitus without complications; F17.210 Nicotine dependence, cigarettes, uncomplicated; F15.90 Other stimulant use, unspecified, uncomplicated; Z87.442 Personal history of urinary calculi; Z88.0 Allergy status to penicillin; Z79.899 Other long term (current) drug therapy; Z79.1 Long term (current) use of non-steroidal anti-inflammatories (NSAID)
CPT/HCPCS: 36415; 74176; 80053; 81001; 85025; 96361; 96374; 99285; J1885; J7030

== ENCOUNTER 2022-09-19 17:56 | Emergency (ER) | payer MEDICAID ==
[~2022-09-19] VITALS: Ht 154.9 cm; Wt 60.9 kg
[2022-09-19 18:20] VITALS: BP 159/76; RESP 17; O2SAT 97
[2022-09-19 18:44] VITALS: PULSE 65
== END 2022-09-19 22:28 | disposition home or self-care (01) ==
LOC: ER 17:56
DX: R06.00 Dyspnea, unspecified (principal); E11.9 Type 2 diabetes mellitus without complications; I10 Essential (primary) hypertension; F17.210 Nicotine dependence, cigarettes, uncomplicated; F12.90 Cannabis use, unspecified, uncomplicated; Z87.442 Personal history of urinary calculi; Z88.0 Allergy status to penicillin; Z79.899 Other long term (current) drug therapy; Z98.890 Other specified postprocedural states
CPT/HCPCS: 36415; 84484; 85379; 87426; 93005

== ENCOUNTER 2022-09-22 11:34 | Emergency (ER) | payer MEDICAID ==
[~2022-09-22] VITALS: Ht 154.9 cm; Wt 59.3 kg
[2022-09-22] MEDS ORDERED: MECLIZINE HCL 25 MG TAB PO ONE (12:00)
[2022-09-22 12:48] LABS: Urine WBC None Seen /hpf (0 - 5)
[2022-09-22 12:56] LABS: Urine Bacteria NONE SEEN /hpf (None Seen); Urine Blood 1+ /uL (Negative); Urine Clarity Clear (Clear); Urine Color Straw (Yellow); Urine Protein, UAD Negative (Negative); Urine Specific Gravity 1.001 (1.001-1.035); Urine Urobilinogen Normal (Negative); Urine pH 6.5 (5.0-8.0)
[2022-09-22 13:01] LABS: Basophils # (auto) 0.1 10 ^3/uL (0-0.2); Basophils % (auto) 0.8 % (0.0-2.0); Eosinophils # (auto) 0.1 10 ^3/uL (0-0.8); Eosinophils % (auto) 0.7 % (0.0-7.0); Hematocrit 43.4 % (36.0-46.0); Hemoglobin 14.3 g/dL (12.2-16.2); Lymphocytes # (auto) 2.1 10 ^3/uL (0.4-5.4); Lymphocytes % (auto) 17.8 % (10.0-50.0); Mean Corpuscular Hemoglobin 28.6 pg (28.0-32.0); Mean Corpuscular Volume 86.6 fL (80.0-100.0); Monocytes # (auto) 0.8 10 ^3/uL (0-1.3); Monocytes % (auto) 6.4 % (0.0-12.0); Neutrophils # (auto) 8.7 10 ^3/uL (1.6-8.6); Neutrophils % (auto) 74.3 % (37.0-80.0); Nucleated Red Blood Cells % 0.2 %; Red Blood Cells 5.01 10^6/uL (4.0-5.20); Red Cell Distribution Width 14.3 % (11.8-14.3); White Blood Cell 11.7 10^3/uL (4.4-10.8)
[2022-09-22 13:11] LABS: Calcium 9.5 mg/dL (8.5-10.1); Potassium 4.1 mmol/L (3.5-5.1)
[2022-09-22 13:16] LABS: Partial Thromboplastin Time 29.6 SEC (24.5-34.5); Prothrombin Time 10.5 sec (9.3-11.8)
[2022-09-22 13:17] LABS: Alcohol, Urine < 3.0 mg/dL (0-10); Amphetamine Screen, Urine NEGATIVE (NEGATIVE); BUN/Creatinine Ratio 15.2 (10.0-20.0); Barbiturate Scree,Urine NEGATIVE (NEGATIVE); Benzodiazephine Screen, Urine NEGATIVE (NEGATIVE); Bilirubin, Total 0.4 mg/dL (0.2-1.0); Cannabinoid Screen, Urine POSITIVE (NEGATIVE); Total Protein 7.9 g/dL (6.4-8.2)
[2022-09-22 13:23] LABS: Cocaine Screen, Urine NEGATIVE (NEGATIVE); Opiate Scree,Urine NEGATIVE (NEGATIVE); Phencyclidine Screen, Urine NEGATIVE (NEGATIVE)
[2022-09-22] MEDS ORDERED: MECL1TAB32 PO (14:30)
[2022-09-22 14:42] VITALS: BP 170/88; PULSE 84; RESP 19; TEMP 98; O2SAT 96
== END 2022-09-22 14:47 | disposition home or self-care (01) ==
LOC: ER 11:34
DX: R42 Dizziness and giddiness (principal); I10 Essential (primary) hypertension; E11.9 Type 2 diabetes mellitus without complications; F17.210 Nicotine dependence, cigarettes, uncomplicated; F15.90 Other stimulant use, unspecified, uncomplicated; Z87.442 Personal history of urinary calculi; Z98.890 Other specified postprocedural states; Z88.0 Allergy status to penicillin; Z79.1 Long term (current) use of non-steroidal anti-inflammatories (NSAID); Z79.899 Other long term (current) drug therapy
CPT/HCPCS: 36415; 70450; 71045; 80053; 80307; 80320; 81001; 83880; 84484; 85025; 85379; 85610; 85730; 93005; 99285; J8597

== ENCOUNTER 2022-10-12 10:54 | Emergency (ER) | payer MEDICAID ==
[~2022-10-12] VITALS: Ht 154.9 cm; Wt 61.7 kg
[~2022-10-12 10:54] MED LIST changes: +MECL1TAB32 PO
[2022-10-12 11:50] LABS: Urine Bacteria NONE SEEN /hpf (None Seen); Urine Blood 2+ /uL (Negative); Urine Clarity Clear (Clear); Urine Color Colorless (Yellow); Urine Protein, UAD Negative (Negative); Urine Specific Gravity 1.011 (1.001-1.035); Urine Urobilinogen Normal (Negative); Urine WBC <1 /hpf (0 - 5)
[2022-10-12] MEDS ORDERED: KETOROLAC TROMETH 30 MG/ML 1ML VIAL IV ONE (12:00)
[2022-10-12] MEDS ORDERED: SODIUM CHLORIDE 0.9% 500 ML IVB ONE (12:00)
[2022-10-12] MEDS ORDERED: METOCLOPRAMIDE HCL 5MG/ml INJ 2ml VIAL IV ONE (12:00)
[2022-10-12 12:08] LABS: Basophils # (auto) 0.1 10 ^3/uL (0-0.2); Basophils % (auto) 0.9 % (0.0-2.0); Eosinophils # (auto) 0.1 10 ^3/uL (0-0.8); Eosinophils % (auto) 1.2 % (0.0-7.0); Hematocrit 40.5 % (36.0-46.0); Hemoglobin 13.5 g/dL (12.2-16.2); Lymphocytes # (auto) 2.7 10 ^3/uL (0.4-5.4); Mean Corpuscular Hemoglobin 28.9 pg (28.0-32.0); Mean Corpuscular Hgb Conc. 33.2 g/dL (32.0-36.0); Mean Corpuscular Volume 87.1 fL (80.0-100.0); Monocytes # (auto) 0.6 10 ^3/uL (0-1.3); Monocytes % (auto) 5.9 % (0.0-12.0); Neutrophils # (auto) 7.3 10 ^3/uL (1.6-8.6); Red Blood Cells 4.65 10^6/uL (4.0-5.20); Red Cell Distribution Width 14.5 % (11.8-14.3); White Blood Cell 10.9 10^3/uL (4.4-10.8)
[2022-10-12 12:23] LABS: Alanine Aminotransferase 15 U/L (7-40); Albumin 4.5 g/dL (3.2-4.8); Alkaline Phosphatase 65 U/L (46-116); Anion Gap 2.8 (5-15); Aspartate Aminotransferase 16 U/L (13-40); BUN/Creatinine Ratio 17.5 (10.0-20.0); Bilirubin, Total 0.4 mg/dL (0.2-1.0); Blood Urea Nitrogen 11 mg/dL (9-23); Calcium 9.4 mg/dL (8.5-10.1); Carbon Dioxide 27.2 mmol/L (20-30); Chloride 108 mmol/L (98-107); Glucose 93 mg/dL (74-106); Magnesium 1.7 mg/dL (1.6-2.6); Potassium 3.8 mmol/L (3.5-5.1); Sodium 138 mmol/L (136-145); Total Protein 7.3 g/dL (5.7-8.2)
[2022-10-12 14:13] VITALS: BP 168/70; PULSE 74; RESP 15; TEMP 97; O2SAT 99
== END 2022-10-12 14:23 | disposition home or self-care (01) ==
LOC: ER 10:54
DX: M47.812 Spondylosis without myelopathy or radiculopathy, cervical region (principal); G89.4 Chronic pain syndrome; I10 Essential (primary) hypertension; R31.9 Hematuria, unspecified; E11.9 Type 2 diabetes mellitus without complications; Z98.51 Tubal ligation status; Z87.442 Personal history of urinary calculi; Z87.440 Personal history of urinary (tract) infections; Z88.0 Allergy status to penicillin
CPT/HCPCS: 36415; 74176; 80053; 81001; 83690; 83735; 85025; 96361; 96374; 96375; 99285; J1885; J2765; J7030

== ENCOUNTER 2023-04-05 08:19 | Emergency (ER) | payer MEDICAID ==
[~2023-04-05] VITALS: Ht 154.9 cm; Wt 60.4 kg
[2023-04-05 09:36] LABS: Urine Bacteria NONE SEEN /hpf (None Seen); Urine Blood 2+ /uL (Negative); Urine Clarity HAZY (Clear); Urine Color Yellow (Yellow); Urine Mucus FEW (None Seen); Urine Protein, UAD TRACE (Negative); Urine Specific Gravity 1.019 (1.001-1.035); Urine Urobilinogen Normal (Negative); Urine WBC 1 /hpf (0 - 5); Urine pH 7.5 (5.0-8.0)
[2023-04-05 09:39] LABS: Basophils # (auto) 0.1 10 ^3/uL (0-0.2); Eosinophils # (auto) 0.3 10 ^3/uL (0-0.8); Eosinophils % (auto) 2.7 % (0.0-7.0); Hemoglobin 13.9 g/dL (12.2-16.2); Lymphocytes # (auto) 2.6 10 ^3/uL (0.4-5.4); Lymphocytes % (auto) 22.8 % (10.0-50.0); Mean Corpuscular Hemoglobin 28.8 pg (28.0-32.0); Mean Corpuscular Hgb Conc. 33.1 g/dL (32.0-36.0); Monocytes # (auto) 0.8 10 ^3/uL (0-1.3); Monocytes % (auto) 7.3 % (0.0-12.0); Neutrophils # (auto) 7.4 10 ^3/uL (1.6-8.6); Neutrophils % (auto) 66.2 % (37.0-80.0); Red Blood Cells 4.83 10^6/uL (4.0-5.20); White Blood Cell 11.2 10^3/uL (4.4-10.8)
[2023-04-05 09:58] LABS: Alanine Aminotransferase 20 U/L (7-40); Albumin 4.5 g/dL (3.2-4.8); Alkaline Phosphatase 80 U/L (46-116); Anion Gap 2 (5-15); Aspartate Aminotransferase 14 U/L (13-40); BUN/Creatinine Ratio 16.2 (10.0-20.0); Blood Urea Nitrogen 12 mg/dL (9-23); Calcium 9.9 mg/dL (8.5-10.1); Carbon Dioxide 29 mmol/L (20-30); Chloride 108 mmol/L (98-107); Glucose 78 mg/dL (74-106); Potassium 4.7 mmol/L (3.5-5.1); Sodium 139 mmol/L (136-145)
[2023-04-05 09:59] LABS: Bilirubin, Total 0.4 mg/dL (0.2-1.0); Total Protein 7.1 g/dL (5.7-8.2)
[2023-04-05 10:18] LABS: INR 0.98 (0.9-1.15); Prothrombin Time 10.3 sec (9.3-11.8)
[2023-04-05 10:53] LABS: Lipase 31 U/L (12-53)
[2023-04-05] MEDS ORDERED: NAPR-1334 PO (12:13)
[2023-04-05 13:28] VITALS: BP 156/74; PULSE 84; RESP 16; TEMP 98; O2SAT 96
== END 2023-04-05 13:29 | disposition home or self-care (01) ==
LOC: ER 08:19
DX: N28.1 Cyst of kidney, acquired (principal); R07.89 Other chest pain; I10 Essential (primary) hypertension; E11.9 Type 2 diabetes mellitus without complications; E03.9 Hypothyroidism, unspecified; F17.210 Nicotine dependence, cigarettes, uncomplicated; Z79.1 Long term (current) use of non-steroidal anti-inflammatories (NSAID); Z79.899 Other long term (current) drug therapy; Z88.0 Allergy status to penicillin
CPT/HCPCS: 36415; 71045; 74176; 80053; 81001; 83690; 84484; 85025; 85610

== ENCOUNTER 2023-04-12 10:01 | Emergency (ER) | payer MEDICAID ==
[~2023-04-12] VITALS: Ht 154.9 cm; Wt 63.0 kg
[~2023-04-12 10:01] MED LIST changes: -IBU600T PO; -IBUP-1456 PO; +NAPR-1334 PO
[2023-04-12 10:06] VITALS: TEMP 97.8
[2023-04-12 10:09] VITALS: BP 151/70; PULSE 92; RESP 18; O2SAT 97
[2023-04-12] MEDS ORDERED: IBUP-1454 PO (14:06)
[2023-04-12] MEDS ORDERED: CYCL-837 PO (14:06)
== END 2023-04-12 14:07 | disposition home or self-care (01) ==
LOC: ER 10:01
DX: S93.402A Sprain of unspecified ligament of left ankle, initial encounter (principal); F17.210 Nicotine dependence, cigarettes, uncomplicated; F12.10 Cannabis abuse, uncomplicated; E11.9 Type 2 diabetes mellitus without complications; I10 Essential (primary) hypertension; Z98.51 Tubal ligation status; Z87.442 Personal history of urinary calculi; Z88.0 Allergy status to penicillin; W18.09XA Striking against other object with subsequent fall, initial encounter; Y93.89 Activity, other specified; Y92.89 Other specified places as the place of occurrence of the external cause; Y99.8 Other external cause status
CPT/HCPCS: 72220; 73610

== ENCOUNTER 2023-07-21 08:54 | Emergency (ER) | payer MEDICAID ==
[~2023-07-21] VITALS: Ht 154.9 cm; Wt 60.3 kg
[~2023-07-21 08:54] MED LIST changes: +CYCL-837 PO; +IBUP-1454 PO; +MECL-90 PO; -MECL1TAB32 PO; -NAPR-1334 PO; +NAPR-1335 PO
[2023-07-21 10:47] LABS: Urine Bacteria FEW /hpf (None Seen); Urine Blood 2+ /uL (Negative); Urine Clarity Turbid (Clear); Urine Color Light-Yellow (Yellow); Urine Protein, UAD Negative (Negative); Urine Specific Gravity 1.013 (1.001-1.035); Urine Urobilinogen Normal (Negative); Urine WBC 2 /hpf (0 - 5); Urine pH 6.5 (5.0-9.0)
[2023-07-21] MEDS ORDERED: HYDR-4902 PO (12:13)
[2023-07-21 12:33] VITALS: BP 149/92; PULSE 74; RESP 19; TEMP 97.8; O2SAT 98
== END 2023-07-21 12:35 | disposition home or self-care (01) ==
LOC: ER 08:54
DX: R07.89 Other chest pain (principal); M54.6 Pain in thoracic spine; E11.9 Type 2 diabetes mellitus without complications; I10 Essential (primary) hypertension; F17.210 Nicotine dependence, cigarettes, uncomplicated; F12.10 Cannabis abuse, uncomplicated; Z98.51 Tubal ligation status; Z87.442 Personal history of urinary calculi; Z88.0 Allergy status to penicillin
CPT/HCPCS: 71046; 81001

== ENCOUNTER 2023-10-14 07:43 | Emergency (ER) | payer MEDICAID ==
[~2023-10-14] VITALS: Ht 154.9 cm; Wt 61.9 kg
[~2023-10-14 07:43] MED LIST changes: +HYDR-4902 PO
[2023-10-14 08:28] VITALS: BP 132/68; PULSE 68; RESP 18; TEMP 98; O2SAT 98
[2023-10-14 08:41] LABS: Urine Bacteria FEW /hpf (None Seen); Urine Blood 2+ /uL (Negative); Urine Clarity Turbid (Clear); Urine Color Yellow (Yellow); Urine Mucus FEW (None Seen); Urine Protein, UAD TRACE (Negative); Urine Specific Gravity 1.021 (1.001-1.035); Urine Urobilinogen Normal (Negative); Urine WBC 3 /hpf (0 - 5); Urine pH 5.5 (5.0-9.0)
[2023-10-14] MEDS ORDERED: MET500T PO (09:05)
== END 2023-10-14 09:19 | disposition home or self-care (01) ==
LOC: ER 07:43
DX: N76.0 Acute vaginitis (principal); N39.0 Urinary tract infection, site not specified; E11.9 Type 2 diabetes mellitus without complications; I10 Essential (primary) hypertension; E03.9 Hypothyroidism, unspecified; F17.210 Nicotine dependence, cigarettes, uncomplicated; F12.90 Cannabis use, unspecified, uncomplicated; Z87.442 Personal history of urinary calculi; Z79.899 Other long term (current) drug therapy; Z79.1 Long term (current) use of non-steroidal anti-inflammatories (NSAID); Z98.890 Other specified postprocedural states; Z88.0 Allergy status to penicillin
CPT/HCPCS: 81001

== ENCOUNTER 2024-03-10 08:35 | Emergency (ER) | payer MEDICAID ==
[~2024-03-10] VITALS: Ht 154.9 cm; Wt 97.9 kg
[~2024-03-10 08:35] MED LIST changes: +MET500T PO
--- NOTE | 2024-03-10 08:46 | ED.PDOC ---
General HPI Comments 59 year old female presents to the ED with chief complaint of flank pain. Patient reports that she has been experiencing bilateral flank pain with associated radiation to the lower back for the past 5 days. Patient relays that she has history of kidney stones and a previous fall a year ago that fractured her tailbone. Patient states she has not followed up with her PCP regarding her complaint today. Patient denies any fever, chills, dysuria, hematuria, chest pain, abdominal pain, or N/V/D. Time Seen by MD: 08:43 Primary Care Provider: Odette HURST Reviewed notes: Nurses Notes, Medications, Allergies Allergies: Coded Allergies: Penicillins (Unverified Allergy, Unknown, 03/25/18) Home Meds Active Scripts Ibuprofen Micronized (MOTRIN TABLET) 600 Mg Tb, 600 MG PO TID PRN for 5 Days, #15 TAB *Black box warning-NSAIDS can increase risk of [place] & hypertension, GI irritation, ulceration, bleed, perferation. Do not use post cardiac surgery. Use short duration/lowest effective dose. Prov:ASHLEY DOW MD 03/10/24 Metronidazole (Metronidazole) 500 Mg Tab, 500 MG PO BID, #14 TAB Prov:SALAZAR GANNON 10/14/23 Hydrocodone-Acetaminophen (Hydrocodone Bitartrate/AC 5-325 mg) 1 Tab Tab, 1 TAB PO Q8HP PRN for 5 Days, #15 TAB Prov:TARA MESSER MD 07/21/23 Cyclobenzaprine Hcl (Cyclobenzaprine Hcl) 5 Mg Tab, 1 TAB PO TID, #30 TAB Prov:WILLA VALDEZ 04/12/23 Ibuprofen (Ibuprofen) 600 Mg Tab, 1 TAB PO TID, #30 TAB Prov:WILLA VALDEZ 04/12/23 Naproxen Sodium (Naproxen) 220 Mg Tab, 220 MG PO BID for 7 Days, #14 TAB Prov:GILBERTO AMOS MD 04/05/23 Meclizine Hcl (Meclizine Hcl) 25 Mg Tab, 25 MG PO TIDPRN PRN for 10 Days, #30 TAB Prov:ADI BINGHAM DO 09/22/22 Ondansetron Odt 4MG Tab (ZOFRAN PO) 4 Mg Tb, 4 MG PO BID, #14 TAB ODT TAB-DISSOLVE IN MOUTH, THEN SWALLOW Prov:SALAZAR GANNON 08/27/22 Tamsulosin Hcl (Flomax) 0.4 Mg Cap, 1 CAP PO DAILY, #20 CAP Prov:SALAZAR GANNON 08/27/22 Tamsulosin Hcl (Flomax) 0.4 Mg Cap, 0.4 MG PO DAILY, #20 CAP Prov:SALAZAR GANNON 07/31/21 Information Source: Patient Mode of Arrival: Ambulatory Severity: Moderate Inability to void: None Timing: Days Duration: Since onset Prehospital treatment: None Onset: Spontaneous Symptoms: None History of: Kidney stone Location: (R) Flank, (L)Flank Modifying factors: None associated signs and symptoms: Flank Pain, Back Pain Past Medical History PAST MEDICAL HISTORY: DM, HTN, Kidney Stones, Thyroid, UTI'S 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 Family History Family History: Reviewed,noncontributory to illness Social History Smoker: Cigarettes, Less Than 1 Pack/Day Alcohol: Denies ETOH Use Drugs: Marijuana Lives In: Home Constitutional: denies: chills, diaphoresis, fatigue, fever, malaise, sweats, weakness, others EENTM: denies: blurred vision, double vision, ear bleeding, ear discharge, ear drainage, ear pain, ear ringing, eye pain, eye redness, hearing loss, mouth pain, mouth swelling, nasal discharge, nose bleeding, nose congestion, nose pain, photophobia, tearing, throat pain, throat swelling, voice changes, others Respiratory: denies: cough, hemoptysis, orthopnea, SOB at rest, shortness of breath, SOB with excertion, stridor, wheezing, others Cardiovascular: denies: chest pain, dizzy spells, diaphoresis, Dyspnea on exertion, edema, irregular heart beat, left arm pain, lightheadedness, palpitations, PND, syncope, others Gastrointestinal: denies: abdomen distended, abdominal pain, blood streaked bowels, constipated, diarrhea, dysphagia, difficulty swallowing, hematemesis, melena, nausea, poor appetite, poor fluid intake, rectal bleeding, rectal pain, vomiting, others Genitourinary: reports: flank pain; denies: abnormal vagina bleeding, burning, dyspareunia, dysuria, frequency, hematuria, incontinence, pain, , vagina discharge, urgency, others Neurological: denies: dizziness, fainting, headache, left sided numbness, left sided weakness, numbness, paresthesia, pre-existing deficit, right sided numbness, right sided weakness, seizure, speech problems, tingling, tremors, weakness, others Musculoskeletal: reports: back pain; denies: gout, joint pain, joint swelling, muscle pain, muscle stiffness, neck pain, others Integumetry: denies: bruises, change in color, change in hair/nails, dryness, laceration, lesions, lumps, rash, wounds, others Allergic/Immunocompromised: denies: Difficulty Healing, Frequent Infections, Hives, Itching, others Hematologic/Lymphatic: denies: anemia, blood clots, easy bleeding, easy br uising, swollen glands, others Endocrine: denies: excessive hunger, excessive sweating, excessive thirst, excessive urination, flushing, intolerance to cold, intolerance to heat, unexplained weight gain, unexplained weight loss, others Psychiatric: denies: anxiety, bipolar disorder, depression, hopeless, panic disorder, schizophrenia, sleepless, suicidal, others All Other Systems: Reviewed and Negative Physical Exam General Appearance: Moderate Distress, Normal HEENT: Normal ENT Inspection, PERRL/EOMI Neck: Full Range of Motion, Non-Tender, Normal, Normal Inspection Respiratory: Chest Non-Tender, Lungs Clear, No Accessory Muscle Use, No Respiratory Distress, Normal Breath Sounds Cardiovascular: No Edema, No JVD, No Murmur, No Gallop, Normal Peripheral Pulses, Regular Rate/Rhythm Breast Exam: Deferred Gastrointestinal: No Organomegaly, Non Tender, No Pulsatile Mass, Normal Bowel Sounds, Soft Genitalia: Deferred Pelvic: Deferred Rectal: Deferred Extremities: No calf tenderness, Normal capillary refill, Normal inspection, Normal range of motion, Non-tender, No pedal edema Musculoskeletal : Apperance: Normal Neurologic: Alert, shop foreman II-XII nml as Tested, No Motor Deficits, Normal Affect, Normal Mood, No Sensory Deficits Cerebellar Function: Normal Reflexes: Normal Skin: Dry, Normal Color, Warm Peripheral Pulses: 3+ Radial (R), 3+ Radial (L) Lymphatic: No Adenopathy Was a procedure done? Was a procedure done?: No Differential Diagnosis Kidney stone (Female): Musculoskeletal pain, Urinary obstruction, Urolithiasis X-Ray, Labs, Meds, VS Vital Signs Date Time Temp Pulse Resp B/P (MAP) Pulse Ox O2 Delivery O2 Flow Rate FiO2 03/10/24 10:37 97.8 67 18 132/76 (94) 99 97.8 03/10/24 10:35 68 16 98 Room Air* 0 21 03/10/24 08:59 97.9 85 17 137/87 (104) 97 97.9 03/10/24 08:59 74 17 97 Room Air 0 03/10/24 08:46 97.9 85 17 168/70 (102) 97 Lab Test 03/10/24 08:56 03/10/24 08:40 Range/Units White Blood Count 10.4 4.4-10.8 10^3/uL Red Blood Count 4.55 4.0-5.20 10^6/uL Hemoglobin 13.6 12.2-16.2 g/dL Hematocrit 40.2 36.0-46.0 % Mean Corpuscular Volume 88.4 80.0-100.0 fL Mean Corpuscular Hemoglobin 29.8 28.0-32.0 pg Mean Corpuscular Hemoglobin Concent 33.7 32.0-36.0 g/dL Red Cell Distribution Width 13.9 11.8-14.3 % Platelet Count 296 140-450 10^3/uL Mean Platelet Volume 9.2 6.9-10.8 fL Neutrophils (%) (Auto) 60.9 37.0-80.0 % Lymphocytes (%) (Auto) 27.6 10.0-50.0 % Monocytes (%) (Auto) 7.7 0.0-12.0 % Eosinophils (%) (Auto) 2.7 0.0-7.0 % Basophils (%) (Auto) 1.1 0.0-2.0 % Neutrophils # (Auto) 6.3 1.6-8.6 10 ^3/uL Lymphocytes # (Auto) 2.9 0.4-5.4 10 ^3/uL Monocytes # (Auto) 0.8 0-1.3 10 ^3/uL Eosinophils # (Auto) 0.3 0-0.8 10 ^3/uL Basophils # (Auto) 0.1 0-0.2 10 ^3/uL Nucleated Red Blood Cells 0.2 % Sodium Level 139 136-145 mmol/L Potassium Level 3.7 3.5-5.1 mmol/L Chloride Level 105 98-107 mmol/L Carbon Dioxide Level 28 20-31 mmol/L Anion Gap 6 5-15 Blood Urea Nitrogen 8 L 9-23 mg/dL Creatinine 0.68 0.550-1.02 mg/dL Glomerular Filtration Rate Calc 102 >90 mL/min BUN/Creatinine Ratio 11.8 10.0-20.0 Serum Glucose 100 74-106 mg/dL Calcium Level 9.8 8.7-10.4 mg/dL Urine Color Light-yellow Yellow Urine Clarity Clear Clear Urine pH 6.5 5.0-9.0 Urine Specific [place] 1.008 1.001-1.035 Urine Protein Negative Negative Urine Ketones Negative Negative Urine Blood 2+ H Negative /uL Urine Nitrite Negative Negative Urine Bilirubin Negative Negative Urine Urobilinogen Normal Negative mg/dL Urine Leukocyte Esterase Negative Negative /uL Urine RBC 11 0 - 4 /hpf Urine Microscopic WBC 1 0-5 /HPF Urine Squamous Epithelial Cells Few <5 /hpf Urine Bacteria Few H None Seen /hpf Urine Glucose Normal Normal mg/dL Current Medications Medications (Trade) Dose Ordered Sig/Brenda Route Start Time Stop Time Status Last Admin Acetaminophen/ Hydrocodone Bitart ([place] 10/325MG Tab) 1 tab ONCE ONCE PO 03/10/24 08:45 03/10/24 08:46 DC 03/10/24 08:57 Patient alert. Complaining of flank pain. Ambulating without difficulty. Vitals stable. Answering all questions. No sign of distress. Blood pressure elevated. Saturation pristine on room air. Was given clonidine. Was given [place]. Chronic. No leg swelling. No shortness a breath. No sign of any fractures. Explained to the patient. Was told to follow up with her primary care physician. Was told to come back if there is any problem. Time of 1ST Reevaluation: 09:43 Reevaluation 1ST: Unchanged Patient Education/Counseling: Diagnosis, Treatment Family Education/Counseling: No Family Present Departure 1 Departure Time of Disposition: 08:54 Impression: Primary Impression: Musculoskeletal pain Additional Impression: Kidney stone Disposition: 01 HOME / SELF CARE / HOMELESS Condition: Good e-Prescriptions Tamsulosin Hcl (Flomax) 0.4 Mg Cap 1 CAP PO DAILY for 3 Days, #3 CAP 11 Refills Prov: ASHLEY DOW MD 03/10/24 Ibuprofen Micronized (MOTRIN TABLET) 600 Mg Tb 600 MG PO TID PRN for 5 Days, #15 TAB *Black box warning-NSAIDS can increase risk of [place] & hypertension, GI irritation, ulceration, bleed, perferation. Do not use post cardiac surgery. Use short duration/lowest effective dose. Prov: ASHLEY DOW MD 03/10/24 Discharged With: Self Critical Care Note Critical Care Time?: No Stability Stability form required: No Heart Score Heart Score: Heart Score Response (Comments) Value History N/A 0 EKG N/A 0 Age N/A 0 Risk Factors N/A 0 Troponin N/A 0 Total 0 I personally scribed for ASHLEY DOW MD ([email or web address]) on 03/10/24 at 08:46. Electronically submitted by Clarence Griggs ([email or web address]). ASHLEY DOW MD Mar 10, 2024 08:46
[2024-03-10] MEDS ORDERED: IBU600T PO (08:54)
[2024-03-10] MEDS: HYDROcodone-ACET 10/325MG TAB PO ONE (08:57)
[2024-03-10 09:18] LABS: Basophils # (auto) 0.1 10 ^3/uL (0-0.2); Basophils % (auto) 1.1 % (0.0-2.0); Eosinophils # (auto) 0.3 10 ^3/uL (0-0.8); Eosinophils % (auto) 2.7 % (0.0-7.0); Hematocrit 40.2 % (36.0-46.0); Hemoglobin 13.6 g/dL (12.2-16.2); Lymphocytes # (auto) 2.9 10 ^3/uL (0.4-5.4); Lymphocytes % (auto) 27.6 % (10.0-50.0); Mean Corpuscular Hemoglobin 29.8 pg (28.0-32.0); Mean Corpuscular Hgb Conc. 33.7 g/dL (32.0-36.0); Mean Corpuscular Volume 88.4 fL (80.0-100.0); Monocytes # (auto) 0.8 10 ^3/uL (0-1.3); Monocytes % (auto) 7.7 % (0.0-12.0); Neutrophils # (auto) 6.3 10 ^3/uL (1.6-8.6); Neutrophils % (auto) 60.9 % (37.0-80.0); Nucleated Red Blood Cells % 0.2 %; Platelet Count (auto) 296 10^3/uL (140-450); Red Blood Cells 4.55 10^6/uL (4.0-5.20); Red Cell Distribution Width 13.9 % (11.8-14.3); White Blood Cell 10.4 10^3/uL (4.4-10.8)
[2024-03-10 09:26] LABS: Chloride 105 mmol/L (98-107); Potassium 3.7 mmol/L (3.5-5.1); Sodium 139 mmol/L (136-145)
[2024-03-10 09:27] LABS: Anion Gap 6 (5-15); Calcium 9.8 mg/dL (8.7-10.4); Carbon Dioxide 28 mmol/L (20-31)
[2024-03-10 09:32] LABS: BUN/Creatinine Ratio 11.8 (10.0-20.0); Glucose 100 mg/dL (74-106)
[2024-03-10 09:35] LABS: Blood Urea Nitrogen 8 mg/dL (9-23)
[2024-03-10 09:41] LABS: Urine Bacteria FEW /hpf (None Seen); Urine Blood 2+ /uL (Negative); Urine Clarity Clear (Clear); Urine Color Light-Yellow (Yellow); Urine Protein, UAD Negative (Negative); Urine Specific Gravity 1.008 (1.001-1.035); Urine Squamous Epithelial Cell FEW /hpf (<5); Urine Urobilinogen Normal (Negative); Urine WBC 1 /HPF (0-5); Urine pH 6.5 (5.0-9.0)
[2024-03-10 10:35] VITALS: PULSE 68; RESP 16; O2SAT 98
[2024-03-10] MEDS ORDERED: TAMS-35 PO (11:18)
[2024-03-10] MEDS: SODIUM CHLORIDE 0.9% 1,000 ML IVB ONE (11:56)
[2024-03-10 13:05] VITALS: BP 135/67; PULSE 72; RESP 16; TEMP 98.2; O2SAT 99
== END 2024-03-10 13:07 | disposition home or self-care (01) ==
LOC: ER 08:35
DX: M79.18 Myalgia, other site (principal); R10.9 Unspecified abdominal pain; I10 Essential (primary) hypertension; E11.9 Type 2 diabetes mellitus without complications; F17.210 Nicotine dependence, cigarettes, uncomplicated; Z87.440 Personal history of urinary (tract) infections; Z79.899 Other long term (current) drug therapy; Z87.442 Personal history of urinary calculi; Z98.51 Tubal ligation status; Z88.0 Allergy status to penicillin
CPT/HCPCS: 36415; 80048; 81001; 85025; 96360; 99283; J7030

== ENCOUNTER 2024-05-12 11:28 | Emergency (ER) | payer MEDICAID ==
[~2024-05-12] VITALS: Ht 154.9 cm; Wt 59.4 kg
[~2024-05-12 11:28] MED LIST changes: +IBU600T PO
--- NOTE | 2024-05-12 11:47 | ED.PDOC ---
General HPI Comments 59-year-old female who comes in with chief complaint of right-sided flank pain x2 days. The patient also states that she has been having some dysuria and hematuria. The patient states that the pain is now a 7/10. She does have a history of kidney stones in the past. There has been no fever or chills. The patient was able to come into the emergency department's without any difficulty. Chief Complaint: Urinary Time Seen by MD: 11:30 Primary Care Provider: ARIS Reviewed notes: Nurses Notes, Medications, Allergies (Allergies to penicillin) Allergies: Coded Allergies: Penicillins (Unverified Allergy, Unknown, 03/25/18) Home Meds Active Scripts Ciprofloxacin Hcl (Cipro) 500 Mg Tab, 1 TAB PO BID, #14 TAB Prov:TARA MESSER MD 05/12/24 Tamsulosin Hcl (Flomax) 0.4 Mg Cap, 1 CAP PO DAILY for 3 Days, #3 CAP 11 Refills Prov:ASHLEY DOW MD 03/10/24 Ibuprofen Micronized (MOTRIN TABLET) 600 Mg Tb, 600 MG PO TID PRN for 5 Days, #15 TAB *Black box warning-NSAIDS can increase risk of [place] & hypertension, GI irritation, ulceration, bleed, perferation. Do not use post cardiac surgery. Use short duration/lowest effective dose. Prov:ASHLEY DOW MD 03/10/24 Metronidazole (Metronidazole) 500 Mg Tab, 500 MG PO BID, #14 TAB Prov:SALAZAR GANNON 10/14/23 Hydrocodone-Acetaminophen (Hydrocodone Bitartrate/AC 5-325 mg) 1 Tab Tab, 1 TAB PO Q8HP PRN for 5 Days, #15 TAB Prov:TARA MESSER MD 07/21/23 Cyclobenzaprine Hcl (Cyclobenzaprine Hcl) 5 Mg Tab, 1 TAB PO TID, #30 TAB Prov:WILLA VALDEZ 04/12/23 Ibuprofen (Ibuprofen) 600 Mg Tab, 1 TAB PO TID, #30 TAB Prov:WILLA VALDEZ 04/12/23 Naproxen Sodium (Naproxen) 220 Mg Tab, 220 MG PO BID for 7 Days, #14 TAB Prov:GILBERTO AMOS MD 04/05/23 Meclizine Hcl (Meclizine Hcl) 25 Mg Tab, 25 MG PO TIDPRN PRN for 10 Days, #30 TAB Prov:ADI BINGHAM DO 09/22/22 Ondansetron Odt 4MG Tab (ZOFRAN PO) 4 Mg Tb, 4 MG PO BID, #14 TAB ODT TAB-DISSOLVE IN MOUTH, THEN SWALLOW Prov:SALAZAR GANNON 08/27/22 Tamsulosin Hcl (Flomax) 0.4 Mg Cap, 1 CAP PO DAILY, #20 CAP Prov:SALAZAR GANNON 08/27/22 Tamsulosin Hcl (Flomax) 0.4 Mg Cap, 0.4 MG PO DAILY, #20 CAP Prov:SALAZAR GANNON 07/31/21 Information Source: Patient Mode of Arrival: Ambulatory Severity: Moderate Inability to void: None Timing: Days (Started two days ago) Duration: Since onset Prehospital treatment: None Location: (R) Flank Modifying factors: None associated signs and symptoms: Flank Pain (Right-sided flank pain), Dysuria, Hematuria Past Medical History PAST MEDICAL HISTORY: DM, HTN, Kidney Stones, Thyroid, UTI'S 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 Family History Family History: Reviewed,noncontributory to illness Social History Smoker: Cigarettes, Less Than 1 Pack/Day Alcohol: Denies ETOH Use Drugs: Marijuana Lives In: Home Constitutional: denies: chills, diaphoresis, fatigue, fever, malaise, sweats, weakness, others EENTM: denies: blurred vision, double vision, ear bleeding, ear discharge, ear drainage, ear pain, ear ringing, eye pain, eye redness, hearing loss, mouth pain, mouth swelling, nasal discharge, nose bleeding, nose congestion, nose pain, photophobia, tearing, throat pain, throat swelling, voice changes, others Respiratory: denies: cough, hemoptysis, orthopnea, SOB at rest, shortness of breath, SOB with excertion, stridor, wheezing, others Cardiovascular: denies: chest pain, dizzy spells, diaphoresis, Dyspnea on exertion, edema, irregular heart beat, left arm pain, lightheadedness, palpitations, PND, syncope, others Gastrointestinal: denies: abdomen distended, abdominal pain, blood streaked bowels, constipated, diarrhea, dysphagia, difficulty swallowing, hematemesis, melena, nausea, poor appetite, poor fluid intake, rectal bleeding, rectal pain, vomiting, others Genitourinary: reports: dysuria, flank pain (Right-sided flank pain), hematuria ; denies: abnormal vagina bleeding, burning, dyspareunia, frequency, incontinence, pain, , vagina discharge, urgency, others Neurological: denies: dizziness, fainting, headache, left sided numbness, left sided weakness, numbness, paresthesia, pre-existing deficit, right sided numbness, right sided weakness, seizure, speech problems, tingling, tremors, weakness, others Musculoskeletal: denies: back pain, gout, joint pain, joint swelling, muscle pain, muscle stiffness, neck pain, others Integumetry: denies: bruises, change in color, change in hair/nails, dryness, laceration, lesions, lumps, rash, wounds, others Allergic/Immunocompromised: denies: Difficulty Healing, Frequent Infections, Hives, Itching, others Hematologic/Lymphatic: denies: anemia, blood clots, easy bleeding, easy bruising, swollen glands, others Endocrine: denies: excessive hunger, excessive sweating, excessive thirst, excessive urination, flushing, intolerance to cold, intolerance to heat, unexpl ained weight gain, unexplained weight loss, others Psychiatric: denies: anxiety, bipolar disorder, depression, hopeless, panic disorder, schizophrenia, sleepless, suicidal, others Physical Exam General Appearance: Mild Distress HEENT: Normal ENT Inspection, Pharynx Normal, TMs Normal Neck: Full Range of Motion, Non-Tender, Normal, Normal Inspection Respiratory: Chest Non-Tender, Lungs Clear, No Accessory Muscle Use, No Respiratory Distress, Normal Breath Sounds Cardiovascular: No Edema, No JVD, No Murmur, No Gallop, Normal Peripheral Pulses, Regular Rate/Rhythm Breast Exam: Deferred Gastrointestinal: No Organomegaly, Non Tender, No Pulsatile Mass, Normal Bowel Sounds, Soft Genitalia: Deferred Pelvic: Deferred Rectal: Deferred Extremities: No calf tenderness, Normal capillary refill, Normal inspection, Normal range of motion, Non-tender, No pedal edema Musculoskeletal : Location: Right Extremity Location: Back Apperance: Tenderness: Mild Neurologic: Alert, resident care technician II-XII nml as Tested, No Motor Deficits, Normal Affect, Normal Mood, No Sensory Deficits Cerebellar Function: Normal Reflexes: Normal Skin: Dry, Normal Color, Warm Lymphatic: No Adenopathy Was a procedure done? Was a procedure done?: No Differential Diagnosis Kidney stone (Female): Musculoskeletal pain, Renal failure, Strain, Urolithiasis X-Ray, Labs, Meds, VS Vital Signs Date Time Temp Pulse Resp B/P (MAP) Pulse Ox O2 Delivery O2 Flow Rate FiO2 05/12/24 12:32 63 14 97 Room Air* 0 21 05/12/24 12:27 98.7 63 14 137/77 (97) 97 98.7 05/12/24 11:31 97.4 83 20 129/76 (93) 97 97.4 Lab Test 05/12/24 11:35 Range/Units Urine Color Light-yellow Yellow Urine Clarity Cloudy H Clear Urine pH 7.0 5.0-9.0 Urine Specific [place] 1.007 1.001-1.035 Urine Protein Negative Negative Urine Ketones Negative Negative Urine Blood 3+ H Negative /uL Urine Nitrite Negative Negative Urine Bilirubin Negative Negative Urine Urobilinogen Normal Negative mg/dL Urine Leukocyte Esterase 3+ Negative /uL Urine RBC 129 0 - 4 /hpf Urine Microscopic WBC 202 H 0-5 /HPF Urine Squamous Epithelial Cells Few <5 /hpf Urine Bacteria Few H None Seen /hpf Urine Glucose Normal Normal mg/dL Current Medications Medications (Trade) Dose Ordered Sig/Brenda Route Start Time Stop Time Status Last Admin Ketorolac Tromethamine (Toradol Injection) 60 mg ONCE ONCE IM 05/12/24 11:45 05/12/24 11:46 DC 05/12/24 11:53 The patient was given Toradol 60 mg IM The CAT scan of the abdomen and pelvis shows: IMPRESSION: 1. Mild dilatation of the appendix as described up to 8 mm. No periappendiceal stranding /lymphadenopathy or other features to suggest acute appendicitis. Findings are unlikely to represent appendicitis. Correlate clinically and with symptoms. 2. Multiple renal hypodense lesions which likely represent hemorrhagic / proteinaceous cysts. Recommend MRI abdomen with and without contrast in the nonemergent setting to further characterize to exclude a renal mass / neoplasm. 3. Colonic diverticular disease. 4. Moderate to large volume stool within the colon. Fecal like contents within the small bowel. These findings could represent sequela of ileus/hypomotility / constipation. 5. No hydronephrosis. The urine test is positive for significant UTI with 3+ leukocytes as well as 202 WBCs The patient was being discharged The patient was placed on Cipro The patient understands and agrees with the management. Images Reviewed?: Images reviewed and evaluated by me Time of 1ST Reevaluation: 11:47 Reevaluation 1ST: Improved Patient Education/Counseling: Diagnosis, Treatment, Prognosis, Need For Follow Up Family Education/Counseling: No Family Present Departure 1 Departure Time of Disposition: 13:11 Impression: Primary Impression: Right flank pain Additional Impression: UTI symptoms Disposition: HOME / SELF CARE / HOMELESS Condition: Fair e-Prescriptions Ciprofloxacin Hcl (Cipro) 500 Mg Tab 1 TAB PO BID, #14 TAB Prov: TARA MESSER MD 05/12/24 Discharged With: Self Critical Care Note Critical Care Time?: No Stability Stability form required: No Heart Score Heart Score: Heart Score Response (Comments) Value History N/A 0 EKG N/A 0 Age N/A 0 Risk Factors N/A 0 Troponin N/A 0 Total 0 TARA MESSER MD May 12, 2024 11:47
[2024-05-12] MEDS: KETOROLAC TROMETH 60MG/2ML VIAL IM ONE (11:53)
[2024-05-12 12:27] VITALS: BP 137/77; TEMP 98.7
[2024-05-12 12:32] VITALS: PULSE 63; RESP 14; O2SAT 97
--- NOTE | 2024-05-12 12:47 | DVH ---
Indication: right flank pain Technique: CT axial images of the abdomen and pelvis are obtained without contrast. Coronal and sagit cale reformats were obtained. Radiation Dose Information: CTDI volume is 6.34 mGy. Dose-length product is 326.11 mGy*cm Comparison: 04/05/2023 FINDINGS: There is limited interpretation of the abdomen and pelvis without administration of intravenous contr ast. Lung bases demonstrate pulmonary emphysematous changes. Adrenal glands, spleen, pancreas unremarkable in shape. Left hepatic lobe cyst measuring 1.3 cm. Rig ht hepatic lobe hypodensity measuring 8 mm, similar to prior. No CT evidence for cholelithiasis. The bilateral kidneys demonstrate no hydronephrosis, nephrolithiasis. There are bilateral renal hyper dense lesions which appears similar to the prior examination including left renal exophytic lesion me asuring 1.8 cm, right renal upper pole lesion measuring 8 mm. Stomach is moderately distended. Duodenal diverticulum. Fecal like contents in the small bowel. [place] johnathan diverticular disease. Moderate to large volume stool within the colon. Appendix is dilated up to 8 mm, previously 7 mm in 2022. No significant periappendiceal stranding. There are appendicolith, wh ich were also present on prior examination in 2022 Abdominal aortic atherosclerotic disease. Bladder nondistended. No significant free pelvic fluid. No inguinal lymphadenopathy. [id number] thoracic degenerative disc disease. [id number] thoracolumbar degenerative disc disease. IMPRESSION: 1. Mild dilatation of the appendix as described up to 8 mm. No periappendiceal stranding /lymphadenop athy or other features to suggest acute appendicitis. Findings are unlikely to represent appendiciti s. Correlate clinically and with symptoms. 2. Multiple renal hypodense lesions which likely represent hemorrhagic / proteinaceous cysts. Recomm end MRI abdomen with and without contrast in the nonemergent setting to further characterize to exclu de a renal mass / neoplasm. 3. Colonic diverticular disease. 4. Moderate to large volume stool within the colon. Fecal like contents within the small bowel. The se findings could represent sequela of ileus/hypomotility / constipation. 5. No hydronephrosis. 6. Other findings as described.
[2024-05-12 12:54] LABS: Urine Bacteria FEW /hpf (None Seen); Urine Blood 3+ /uL (Negative); Urine Protein, UAD Negative (Negative); Urine Specific Gravity 1.007 (1.001-1.035); Urine Squamous Epithelial Cell FEW /hpf (<5); Urine Urobilinogen Normal (Negative); Urine WBC 202 /HPF (0-5)
[2024-05-12 12:57] LABS: Urine Clarity Cloudy (Clear); Urine Color Light-Yellow (Yellow)
[2024-05-12] MEDS ORDERED: CIPR-173 PO (13:05)
== END 2024-05-12 13:17 | disposition home or self-care (01) ==
LOC: ER 11:28
DX: R10.84 Generalized abdominal pain (principal); N39.0 Urinary tract infection, site not specified; E11.9 Type 2 diabetes mellitus without complications; I10 Essential (primary) hypertension; F17.210 Nicotine dependence, cigarettes, uncomplicated; F12.90 Cannabis use, unspecified, uncomplicated; Z98.51 Tubal ligation status; Z88.0 Allergy status to penicillin; Z79.1 Long term (current) use of non-steroidal anti-inflammatories (NSAID)
CPT/HCPCS: 74176; 81001; 96372; 99285; J1885

== ENCOUNTER 2024-09-24 10:41 | Emergency (ER) | payer MEDICAID ==
[~2024-09-24] VITALS: Ht 154.9 cm; Wt 59.5 kg
[~2024-09-24 10:41] MED LIST changes: +CIPR-173 PO
[2024-09-24] MEDS ORDERED: CEPH500C PO (11:47)
[2024-09-24] MEDS ORDERED: NAPR-746 PO (11:47)
--- NOTE | 2024-09-24 11:49 | ED.PDOC ---
History of Present Illness(SKN HPI Comments This is 59 year old female presenting to the ED with chief complaint of insect bite. Patient reports that when putting on her jeans this morning, she felt a burning pain to her left thigh and when looking, she saw an insect bite with surrounding redness. Patient states she is unsure what had bit her. Patient denies any fever, numbness, discharge, dizziness, chest pain, or SOB. Chief Complaint: Insect Bite Time Seen by MD: 10:47 Primary Care Provider: ARIS History of Present Illness: Nurses Notes, Medications, Allergies Allergies: Coded Allergies: Penicillins (Unverified Allergy, Unknown, 03/25/18) Home Meds Active Scripts Naproxen (Naproxen) 500 Mg Tab, 500 MG PO BIDPC for 7 Days, #14 TAB 0 Refills Prov:ULYSSES SENA NP 09/24/24 Cephalexin Monohydrate (Cephalexin) 500 Mg Cap, 1 CAP PO QID for 5 Days, #20 CAP 0 Refills Prov:ULYSSES SENA NP 09/24/24 Ciprofloxacin Hcl (Cipro) 500 Mg Tab, 1 TAB PO BID, #14 TAB Prov:TARA MESSER MD 05/12/24 Tamsulosin Hcl (Flomax) 0.4 Mg Cap, 1 CAP PO DAILY for 3 Days, #3 CAP 11 Refills Prov:ASHLEY DOW MD 03/10/24 Ibuprofen Micronized (MOTRIN TABLET) 600 Mg Tb, 600 MG PO TID PRN for 5 Days, #15 TAB *Black box warning-NSAIDS can increase risk of TN & hypertension, GI irritation, ulceration, bleed, perferation. Do not use post cardiac surgery. Use short duration/lowest effective dose. Prov:ASHLEY DOW MD 03/10/24 Metronidazole (Metronidazole) 500 Mg Tab, 500 MG PO BID, #14 TAB Prov:SALAZAR GANNON 10/14/23 Hydrocodone-Acetaminophen (Hydrocodone Bitartrate/AC 5-325 mg) 1 Tab Tab, 1 TAB PO Q8HP PRN for 5 Days, #15 TAB Prov:TARA MESSER MD 07/21/23 Cyclobenzaprine Hcl (Cyclobenzaprine Hcl) 5 Mg Tab, 1 TAB PO TID, #30 TAB Prov:WILLA VALDEZ 04/12/23 Ibuprofen (Ibuprofen) 600 Mg Tab, 1 TAB PO TID, #30 TAB Prov:WILLA VALDEZ 04/12/23 Naproxen Sodium (Naproxen) 220 Mg Tab, 220 MG PO BID for 7 Days, #14 TAB Prov:GILBERTO AMOS MD 04/05/23 Meclizine Hcl (Meclizine Hcl) 25 Mg Tab, 25 MG PO TIDPRN PRN for 10 Days, #30 TAB Prov:ADI BINGHAM DO 09/22/22 Ondansetron Odt 4MG Tab (ZOFRAN PO) 4 Mg Tb, 4 MG PO BID, #14 TAB ODT TAB-DISSOLVE IN MOUTH, THEN SWALLOW Prov:SALAZAR GANNON 08/27/22 Tamsulosin Hcl (Flomax) 0.4 Mg Cap, 1 CAP PO DAILY, #20 CAP Prov:SALAZAR GANNON 08/27/22 Tamsulosin Hcl (Flomax) 0.4 Mg Cap, 0.4 MG PO DAILY, #20 CAP Prov:SALAZAR GANNON 07/31/21 Information Source: Patient Mode of Arrival: Ambulatory Severity: Moderate Timing: Hours Duration: Since onset Prehospital treatment: None Location: Leg Mechanism: Insect Developed: Rash Occurence: Indoors Object: None Condition of Object: None Retained Foreign Body: Unknown Wound Type: Unknown Tetanus: Unknown Past Medical History PAST MEDICAL HISTORY: DM, HTN, Kidney Stones, Thyroid, UTI'S Surgical History: BTL [employer]ER History: No Pertinent PEEL [employer] T[employer]ER History Family History Family History: Reviewed,noncontributory to illness Social History Smoker: Cigarettes, Less Than 1 Pack/Day Alcohol: Denies ETOH Use Drugs: Marijuana Lives In: Home Constitutional: denies: chills, diaphoresis, fatigue, fever, malaise, sweats, weakness, others EENTM: denies: blurred vision, double vision, ear bleeding, ear discharge, ear drainage, ear pain, ear ringing, eye pain, eye redness, hearing loss, mouth pain, mouth swelling, nasal discharge, nose bleeding, nose congestion, nose pain, photophobia, tearing, throat pain, throat swelling, voice changes, others Respiratory: denies: cough, hemoptysis, orthopnea, SOB at rest, shortness of breath, SOB with excertion, stridor, wheezing, others Cardiovascular: denies: chest pain, dizzy spells, diaphoresis, Dyspnea on exertion, edema, irregular heart beat, left arm pain, lightheadedness, palpitations, PND, syncope, others Gastrointestinal: denies: abdomen distended, abdominal pain, blood streaked bowels, constipated, diarrhea, dysphagia, difficulty swallowing, hematemesis, melena, nausea, poor appetite, poor fluid intake, rectal bleeding, rectal pain, vomiting, others Genitourinary: denies: abnormal vagina bleeding, burning, dyspareunia, dysuria, flank pain, frequency, hematuria, incontinence, pain, , vagina discharge, urgency, others Neurological: denies: dizziness, fainting, headache, left sided numbness, left sided weakness, numbness, paresthesia, pre-existing deficit, right sided numbness, right sided weakness, seizure, speech problems, tingling, tremors, weakness, others Musculoskeletal: denies: back pain, gout, joint pain, joint swelling, muscle pain, muscle stiffness, neck pain, others Integumetry: reports: rash; denies: bruises, change in color, change in hair/nails, dryness, laceration, lesions, lumps, wounds, others Allergic/Immunocompromised: denies: Difficulty Healing, Frequent Infections, Hives, Itching, others Hematologic/Lymphatic: denies: anemia, blood clots, easy bleeding, easy bru ising, swollen glands, others Endocrine: denies: excessive hunger, excessive sweating, excessive thirst, e xcessive urination, flushing, intolerance to cold, intolerance to heat, unexplained weight gain, unexplained weight loss, others Psychiatric: denies: anxiety, bipolar disorder, depression, hopeless, panic disorder, schizophrenia, sleepless, suicidal, others All Other Systems: Reviewed and Negative Physical Exam General Appearance: No Apparent Distress, Normal HEENT: Normal ENT Inspection, Pharynx Normal, TMs Normal Neck: Full Range of Motion, Non-Tender, Normal, Normal Inspection Respiratory: Chest Non-Tender, Lungs Clear, No Accessory Muscle Use, No Respiratory Distress, Normal Breath Sounds Cardiovascular: No Edema, No JVD, No Murmur, No Gallop, Normal Peripheral Pulses, Regular Rate/Rhythm Breast Exam: Deferred Gastrointestinal: No Organomegaly, Non Tender, No Pulsatile Mass, Normal Bowel Sounds, Soft Genitalia: Deferred Pelvic: Deferred Rectal: Deferred Extremities: No calf tenderness, Normal capillary refill, Normal inspection, Normal range of motion, Non-tender, No pedal edema Musculoskeletal : Apperance: Normal Neurologic: Alert, sample preparation supervisor II-XII nml as Tested, No Motor Deficits, Normal Affect, Normal Mood, No Sensory Deficits Cerebellar Function: Normal Reflexes: Normal Skin: Dry, Warm, Other (Erythema noted to the left lateral thigh. Blanchable. No fluctuance, no drainage.) Lymphatic: No Adenopathy Was a procedure done? Was a procedure done?: No Differential Diagnosis (INTG) Differential Diagnosis: Cellulitis, Insect Envenomation X-Ray, Labs, Meds, VS Vital Signs Date Time Temp Pulse Resp B/P (MAP) Pulse Ox O2 Delivery O2 Flow Rate FiO2 09/24/24 10:42 98.0 67 18 150/61 97 98.0 X-Ray, Labs, Meds, VS Comment This is a 59 year old female presenting to the ED with chief complaint of insect bite. Patient arrives alert and oriented, ABC's intact, afebrile, vital signs stable, saturating well in room air Additional MDM Review of External, Non-ED records: External records reviewed. Discussion with independent historian (EMS, family) history obtained from the patient/parents (if applicable) at bedside Chronic conditions affecting care: None Social determinants of health affecting care: None Consideration of admission (observation or admission): I considered escalation of care to admission for this patient, however given the reassuring workup, the patient is safe for outpatient management. Time of 1ST Reevaluation: 12:00 Reevaluation 1ST: Unchanged Patient Education/Counseling: Diagnosis, Treatment Family Education/Counseling: No Family Present SEPSIS Sepsis Screen Date sepsis recognized/suspect: Sep 24, 2024 Time Sepsis recognized/suspect: 1044 Recent Procedure: No On Antibiotic Therapy: No Respiratory Rate >20: No Heart Rate >90: No Temp<36 C (96.8 F) or >38.3 C: No SBP <90 or MAP <65 mmHG: No New Acute Mental Status Change: No Is the patient on CPAP, BIPAP,: No Vital Signs Date Time Temp Pulse Resp B/P (MAP) Pulse Ox O2 Delivery O2 Flow Rate FiO2 09/24/24 10:42 98.0 67 18 150/61 97 98.0 Departure 1 Departure Time of Disposition: 11:48 Impression: Primary Impression: Insect bite Qualified Codes: S70.362A - Insect bite (nonvenomous), left thigh, initial encounter; W57.XXXA - Bitten or stung by nonvenomous insect and other nonvenomous arthropods, initial encounter Disposition: HOME / SELF CARE / HOMELESS Condition: Stable e-Prescriptions Naproxen (Naproxen) 500 Mg Tab 500 MG PO BIDPC for 7 Days, #14 TAB 0 Refills Prov: ULYSSES SENA NP 09/24/24 Cephalexin Monohydrate (Cephalexin) 500 Mg Cap 1 CAP PO QID for 5 Days, #20 CAP 0 Refills Prov: ULYSSES SENA NP 09/24/24 Discharged With: Self Critical Care Note Critical Care Time?: No Stability Stability form required: No Heart Score Heart Score: Heart Score Response (Comments) Value History N/A 0 EKG N/A 0 Age N/A 0 Risk Factors N/A 0 Troponin N/A 0 Total 0 I personally scribed for ULYSSES SENA NP ([email or web address]) on 09/24/24 at 12:21. Electronically submitted by Clarence Griggs ([email or web address]). ULYSSES SENA NP Sep 24, 2024 11:49
[2024-09-24 12:25] VITALS: BP 146/64; PULSE 68; RESP 16; TEMP 97.7; O2SAT 97
== END 2024-09-24 12:27 | disposition home or self-care (01) ==
LOC: ER 10:41
DX: S70.362A Insect bite (nonvenomous), left thigh, initial encounter (principal); E11.9 Type 2 diabetes mellitus without complications; I10 Essential (primary) hypertension; F17.210 Nicotine dependence, cigarettes, uncomplicated; Z88.0 Allergy status to penicillin; Z98.51 Tubal ligation status; W57.XXXA Bitten or stung by nonvenomous insect and other nonvenomous arthropods, initial encounter; Y93.89 Activity, other specified; Y92.89 Other specified places as the place of occurrence of the external cause; Y99.8 Other external cause status

== ENCOUNTER 2024-11-27 07:15 | Emergency (ER) | payer MEDICAID ==
[~2024-11-27] VITALS: Ht 154.9 cm; Wt 59.0 kg
[~2024-11-27 07:15] MED LIST changes: +CEPH500C PO; +NAPR-746 PO
--- NOTE | 2024-11-27 07:50 | ED.PDOC ---
GI ASSESSMENT HPI Comments A 59 YEAR OLD FEMALE PRESENTS TO THE ED WITH COMPLAINT OF ABDOMINAL PAIN. PT HAS BEEN HAVING EPIGASTRIC ABDOMINAL PAIN RADIATING TO THE BACK FOR THE PAST 4 DAYS. PT STATES THE PAIN IS WORSE AFTER EATING, CONSTANT, WITH NO ASSOCIATED RELIEVING FACTORS. PT OTHERWISE STATES SHE RECENTLY WENT TO URGENT CARE AND WAS DX WITH UTI AND GIVEN ANTIBIOTIC BUT STILL HAS HIS ABDOMINAL PAIN. PT HAS NOTED BP OF 160/94 WITH OTHERWISE STABLE VITALS. PATIENT DENIES FEVER, CHILLS, SHORTNESS OF BREATH, CHEST PAIN, ABDOMINAL PAIN, NAUSEA, VOMITING, HEADACHE, OR OTHER COMPLAINTS. NO OTHER SYMPTOMS OR MODIFYING FACTORS AT THIS TIME. PATIENT IS ALERT, ORIENTED X 4, AND HAS STEADY GAIT. Chief Complaint: Flank Pain Time Seen by MD: 07:46 Primary Care Provider: ARIS Reviewed Notes: Nurses Notes, Medications, Allergies Allergies: Coded Allergies: Penicillins (Unverified Allergy, Unknown, 03/25/18) Home Meds Active Scripts Tamsulosin Hcl (Flomax) 0.4 Mg Cap, 1 CAP PO DAILY, #30 CAP Prov:SALAZAR GANNON 11/27/24 Ibuprofen (Ibuprofen) 800 Mg Tab, 1 TAB PO TID, #30 TAB Prov:SALAZAR GANNON 11/27/24 Naproxen (Naproxen) 500 Mg Tab, 500 MG PO BIDPC for 7 Days, #14 TAB 0 Refills Prov:ULYSSES SENA NP 09/24/24 Cephalexin Monohydrate (Cephalexin) 500 Mg Cap, 1 CAP PO QID for 5 Days, #20 CAP 0 Refills Prov:ULYSSES SENA NP 09/24/24 Ciprofloxacin Hcl (Cipro) 500 Mg Tab, 1 TAB PO BID, #14 TAB Prov:TARA MESSER MD 05/12/24 Tamsulosin Hcl (Flomax) 0.4 Mg Cap, 1 CAP PO DAILY for 3 Days, #3 CAP 11 Refills Prov:ASHLEY DOW MD 03/10/24 Ibuprofen Micronized (MOTRIN TABLET) 600 Mg Tb, 600 MG PO TID PRN for 5 Days, #15 TAB *Black box warning-NSAIDS can increase risk of MS & hypertension, GI irritation, ulceration, bleed, perferation. Do not use post cardiac surgery. Use short duration/lowest effective dose. Prov:ASHLEY DOW MD 03/10/24 Metronidazole (Metronidazole) 500 Mg Tab, 500 MG PO BID, #14 TAB Prov:SALAZAR GANNON 10/14/23 Hydrocodone-Acetaminophen (Hydrocodone Bitartrate/AC 5-325 mg) 1 Tab Tab, 1 TAB PO Q8HP PRN for 5 Days, #15 TAB Prov:TARA MESSER MD 07/21/23 Cyclobenzaprine Hcl (Cyclobenzaprine Hcl) 5 Mg Tab, 1 TAB PO TID, #30 TAB Prov:WILLA VALDEZ 04/12/23 Ibuprofen (Ibuprofen) 600 Mg Tab, 1 TAB PO TID, #30 TAB Prov:WILLA VALDEZP 04/12/23 Naproxen Sodium (Naproxen) 220 Mg Tab, 220 MG PO BID for 7 Days, #14 TAB Prov:GILBERTO AMOS MD 04/05/23 Meclizine Hcl (Meclizine Hcl) 25 Mg Tab, 25 MG PO TIDPRN PRN for 10 Days, #30 TAB Prov:ADI BINGHAM DO 09/22/22 Ondansetron Odt 4MG Tab (ZOFRAN PO) 4 Mg Tb, 4 MG PO BID, #14 TAB ODT TAB-DISSOLVE IN MOUTH, THEN SWALLOW Prov:SALAZAR GANNON 08/27/22 Tamsulosin Hcl (Flomax) 0.4 Mg Cap, 1 CAP PO DAILY, #20 CAP Prov:SALAZAR GANNON 08/27/22 Tamsulosin Hcl (Flomax) 0.4 Mg Cap, 0.4 MG PO DAILY, #20 CAP Prov:SALAZAR GANNON 07/31/21 Information Source: Patient Mode of Arrival: Ambulatory Brought in by: SELF Timing: Days Duration: Since onset, Days Prehospital treatment: None Quality: Aching, Sharp, Colicky Vomitus: None Stool: Other Severity: Moderate Recent: None Recent Hx of: None Pain Location: Epigastric Modifying Factors: Nothing Associated sign and symptoms: Abdominal Pain Past Medical History PAST MEDICAL HISTORY: HTN, Kidney Stones, Thyroid, UTI'S Past Medical History (Other): DDD OF LOW BACK Surgical History: BTL FOLD SKIVER History: No Pertinent FOLD SKIVER History Family History Family History: Reviewed,noncontributory to illness Social History Smoker: Cigarettes, Less Than 1 Pack/Day Alcohol: Denies ETOH Use Drugs: Marijuana Lives In: Home Constitutional: denies: chills, diaphoresis, fatigue, fever, malaise, sweats, weakness, others EENTM: denies: blurred vision, double vision, ear bleeding, ear discharge, ear drainage, ear pain, ear ringing, eye pain, eye redness, hearing loss, mouth pain, mouth swelling, nasal discharge, nose bleeding, nose congestion, nose pain, photophobia, tearing, throat pain, throat swelling, voice changes, others Respiratory: denies: cough, hemoptysis, orthopnea, SOB at rest, shortness of breath, SOB with excertion, stridor, wheezing, others Cardiovascular: denies: chest pain, dizzy spells, diaphoresis, Dyspnea on exertion, edema, irregular heart beat, left arm pain, lightheadedness, palpitations, PND, syncope, others Gastrointestinal: reports: abdominal pain; denies: abdomen distended, blood streaked bowels, constipated, diarrhea, dysphagia, difficulty swallowing, hematemesis, melena, nausea, poor appetite, poor fluid intake, rectal bleeding, rectal pain, vomiting, others Genitourinary: denies: abnormal vagina bleeding, burning, dyspareunia, dysuria, flank pain, frequency, hematuria, incontinence, pain, , vagina discharge, urgency, others Neurological: denies: dizziness, fainting, headache, left sided numbness, left sided weakness, numbness, paresthesia, pre-existing deficit, right sided numbness, right sided weakness, seizure, speech problems, tingling, tremors, weakness, others Musculoskeletal: denies: back pain, gout, joint pain, joint swelling, muscle pain, muscle stiffness, neck pain, others Integumetry: denies: bruises, change in color, change in hair/nails, dryness, laceration, lesions, lumps, rash, wounds, others Allergic/Immunocompromised: denies: Difficulty Healing, Frequent Infections, Hives, Itching, others Hematologic/Lymphatic: denies: anemia, blood clots, easy bleeding, easy bruising, swollen glands, others Endocrine: denies: excessive hunger, excessive sweating, excessive thirst, excessive urination, flushing, intolerance to cold, intolerance to heat, unexplained weight gain, unexplained weight loss, others Psychiatric: denies: anxiety, bipolar disorder, depression, hopeless, panic disorder, schizophrenia, sleepless, suicidal, others All Other Systems: Reviewed and Negative Physical Exam General Appearance: No Apparent Distress, Normal HEENT: Normal ENT Inspection, PERRL/EOMI, Pharynx Normal, TMs Normal Neck: Full Range of Motion, Non-Tender, Normal, Normal Inspection Respiratory: Chest Non-Tender, Lungs Clear, No Accessory Muscle Use, No Respiratory Distress, Normal Breath Sounds Cardiovascular: No Edema, No JVD, No Murmur, No Gallop, Normal Peripheral Pulses, Regular Rate/Rhythm Breast Exam: Deferred Gastrointestinal: Epigastric, No Organomegaly, No Pulsatile Mass, Normal Bowel Sounds, Soft, Tenderness (EPIGASTRIC, NO GUARDING AND REBOUND TENDERNESS. ) Genitalia: Deferred Pelvic: Deferred Rectal: Deferred Extremities: No calf tenderness, Normal capillary refill, Normal inspection, Normal range of motion, Non-tender, No pedal edema Musculoskeletal : Location: Bilateral Extremity Location: Back Apperance: Tenderness (MIDDLE BACK, NO BONY TENDERNESS, SWELLING AND DEFORMITY, NO CVA TENDERNESS. ) Neurologic: Alert, electronic tech II-XII nml as Tested, No Motor Deficits, Normal Affect, Normal Mood, No Sensory Deficits Cerebellar Function: Normal Reflexes: Normal Skin: Dry, Normal Color, Warm Peripheral Pulses: 2+ carotid (R), 2+ carotid (L) Lymphatic: No Adenopathy Was a procedure done? Was a procedure done?: No GI differential Dx Differential Diagnosis: Cholecystitis, Gastritis/PUD, Gastroenteritis, Pancreatitis, UTI, Food Poisoning, Bacterial, Viral, Kidney Stone Other Differential Diagnosis GALLSTONES, BILIARY COLIC X-Ray, Labs, Meds, VS Vital Signs Date Time Temp Pulse Resp B/P (MAP) Pulse Ox O2 Delivery O2 Flow Rate FiO2 11/27/24 08:03 65 18 98 Room Air 11/27/24 08:03 97.9 65 18 157/68 (97) 98 97.9 11/27/24 07:17 97.6 76 15 160/94 97 97.6 Lab Test 11/27/24 08:01 11/27/24 07:53 Range/Units Urine Color Yellow Yellow Urine Clarity Clear Clear Urine pH 6.5 5.0-9.0 Urine Specific [place] 1.011 1.001-1.035 Urine Protein Negative Negative Urine Ketones Negative Negative Urine Blood 1+ H Negative /uL Urine Nitrite Negative Negative Urine Bilirubin Negative Negative Urine Urobilinogen Normal Negative mg/dL Urine Leukocyte Esterase Negative Negative /uL Urine RBC 6 0 - 4 /hpf Urine Microscopic WBC 1 0-5 /HPF Urine Squamous Epithelial Cells Few <5 /hpf Urine Bacteria None seen None Seen /hpf Urine Glucose Normal Normal mg/dL White Blood Count 9.6 4.4-10.8 10^3/uL Red Blood Count 5.11 4.0-5.20 10^6/uL Hemoglobin 14.9 12.2-16.2 g/dL Hematocrit 44.1 36.0-46.0 % Mean Corpuscular Volume 86.3 80.0-100.0 fL Mean Corpuscular Hemoglobin 29.1 28.0-32.0 pg Mean Corpuscular Hemoglobin Concent 33.7 32.0-36.0 g/dL Red Cell Distribution Width 13.9 11.8-14.3 % Platelet Count 273 140-450 10^3/uL Mean Platelet Volume 9.1 6.9-10.8 fL Neutrophils (%) (Auto) 63.8 37.0-80.0 % Lymphocytes (%) (Auto) 25.3 10.0-50.0 % Monocytes (%) (Auto) 6.9 0.0-12.0 % Eosinophils (%) (Auto) 2.8 0.0-7.0 % Basophils (%) (Auto) 1.2 0.0-2.0 % Neutrophils # (Auto) 6.1 1.6-8.6 10 ^3/uL Lymphocytes # (Auto) 2.4 0.4-5.4 10 ^3/uL Monocytes # (Auto) 0.7 0-1.3 10 ^3/uL Eosinophils # (Auto) 0.3 0-0.8 10 ^3/uL Basophils # (Auto) 0.1 0-0.2 10 ^3/uL Nucleated Red Blood Cells 0.1 % Sodium Level 140 136-145 mmol/L Potassium Level 4.4 3.5-5.1 mmol/L Chloride Level 108 H 98-107 mmol/L Carbon Dioxide Level 27 20-31 mmol/L Anion Gap 5 5-15 Blood Urea Nitrogen 11 9-23 mg/dL Creatinine 0.71 0.550-1.02 mg/dL Glomerular Filtration Rate Calc 99 >90 mL/min BUN/Creatinine Ratio 15.5 10.0-20.0 Serum Glucose 103 74-106 mg/dL Calcium Level 9.7 8.7-10.4 mg/dL Total Bilirubin 0.4 0.2-1.0 mg/dL Aspartate Amino Transferase (AST) 28 13-40 U/L Alanine Aminotransferase (ALT) 29 7-40 U/L Alkaline Phosphatase 82 46-116 U/L Total Protein 7.9 5.7-8.2 g/dL Albumin 4.8 3.2-4.8 g/dL Lipase 37 12-53 U/L Current Medications Medications (Trade) Dose Ordered Sig/Brenda Route Start Time Stop Time Status Last Admin Ketorolac Tromethamine (Toradol Injection) 60 mg ONCE ONCE IM 11/27/24 08:00 11/27/24 08:01 DC 11/27/24 07:53 [place] [address] Ph: [phone] DIAGNOSTIC IMAGING Diagnostic Imaging Report : [id number] Signed PATIENT: AFSANEH SHANKS ACCT: [id number] UNIT: [id number] : 1965 LOC: ER ROOM / BED: / AGE / SEX: 59 / F ADM STATUS: REG ER SERVICE 5 ORDERING PHYSICIAN: SALAZAR GANNON PROCEDURE(s): ABDC - ABDOMEN COMPLETE SONOGRAM REASON: MIDDLE BACK PAIN TO EPIGASTRIC. ORDER NUMBER(s): [id number], ACCESSION NUMBER(s): [id number] CLINICAL INFORMATION: 59 years old, Female; MIDDLE BACK PAIN TO EPIGASTRIC.. TECHNIQUE: Grayscale sonographic imaging of the abdomen was performed, assisted by color Doppler technique. COMPARISON: US GALLBLADDER on DOS: 08/27/22, ABPL on DOS: 07/31/21, CT ABD PELVIS WO CONTRAST on DOS: 07/31/21 FINDINGS: The gallbladder wall measures 2.6 mm in thickness, within normal limits. No stones are seen. Negative reported sonographic Fernandes's sign. The common bile duct measures 6.0 mm in diameter, within normal limits. The liver is normal in size. Increased echogenicity of the liver suggesting fatty infiltration. Cyst in the left hepatic lobe measures up to 1.1 cm. The pancreas is partly obscured, likely by bowel gas. The visualized portions ap pear normal. The right kidney measures 9.1 cm. There is no hydronephrosis. Normal cortical echogenicity and cortical thickness. 1.3 cm cyst in the superior pole. Echogenic focus in the superior pole of the right kidney, possible small nonobstructing ca lculus. The left kidney measures 9.9 cm. There is no hydronephrosis. Normal cortical echogenicity and cortical thickness. Multiple cysts in the left kidney, with the largest measuring up to 1.7 cm at the midpole. Small echogenic focus in the midpole of the left kidney, possibly small nonobstructing calculus. The spleen measures was not imaged. Visualized portions of the IVC appear patent. Aorta was not evaluated. IMPRESSION: 1. No sonographic evidence of acute cholecystitis. 2. Hepatic steatosis. Small hepatic cyst. 3. Bilateral renal cysts. Small echogenic foci in both kidneys, possible nonobstructing renal calculi. ATED BY: IDRIS LARIOS DO DICTATED DATE/TIME: 11/27/24913 SIGNED BY: IDRIS LARIOS DO SIGNED DATE/TIME: 11/27/24913 CC: X-Ray, Labs, Meds, VS Comment COURSE: EXTERNAL MEDICAL RECORDS REVIEWED: [NONE] INDEPENDENT HISTORIANS: [NONE] SOCIAL DETERMINANTS OF HEALTH: [NONE] LABS ORDERED: CBC, CMP, UA, LIPASE REVIEWED AND INTERPRETED RESULTS: NONE IMAGING ORDERED: GALLBLADDER US TREATMENTS ORDERED: TORADOL 60MG IM PROCEDURES PERFORMED: NONE CRITICAL CARE TIME: NONE I HAVE DISCUSSED THE PATIENT WITH THE ATTENDING PHYSICIAN, DR. SCHULTZ, HE AGREES WITH THE PATIENT'S PLAN OF CARE AND DISPOSITION. BASED ON HISTORY OF PRESENT ILLNESS, AND PHYSICAL EXAM, PATIENT WILL BE DISCHARGED HOME. DISCUSSED PLAN FOR DISCHARGE HOME WITH RX [MOTRIN AND FLOMAX ]. MEDICATION WARNINGS GIVEN. SHARED DECISION MAKING: DISCUSSED WITH PATIENT THAT THEIR WORKUP WAS NORMAL. PATIENT INSTRUCTED TO FOLLOW UP WITH PRIMARY CARE PROVIDER IN 1-2 DAYS FOR RE- EVALUATION OF SYMPTOMS. PATIENT VERBALIZES UNDERSTANDING TO RETURN TO ED FOR NEW OR WORSENING SYMPTOMS OR IF FOLLOW UP WITH PCP CANNOT BE OBTAINED. PATIENT FEELS COMFORTABLE GOING HOME AT THIS TIME. ALL QUESTIONS ADDRESSED AT TIME OF DISCHARGE. Time of 1ST Reevaluation: 09:43 Reevaluation 1ST: Improved Patient Education/Counseling: Diagnosis, Treatment, Need For Follow Up Family Education/Counseling: Diagnosis, Treatment, No Family Present Medical Screening: No EMC Exist At This Time SEPSIS Sepsis Screen Date sepsis recognized/suspect: Nov 27, 2024 Time Sepsis recognized/suspect: 07 Recent Procedure: No On Antibiotic Therapy: No Respiratory Rate >20: No Heart Rate >90: No Temp<36 C (96.8 F) or >38.3 C: No SBP <90 or MAP <65 mmHG: No New Acute Mental Status Change: No Is the patient on CPAP, BIPAP,: No Physician Orders Abdomen Complete Sonogram (11/27/24 07:26) Vital Signs Date Time Temp Pulse Resp B/P (MAP) Pulse Ox O2 Delivery O2 Flow Rate FiO2 11/27/24 08:03 65 18 98 Room Air 11/27/24 08:03 97.9 65 18 157/68 (97) 98 97.9 11/27/24 07:17 97.6 76 15 160/94 97 97.6 Laboratory Tests Test 11/27/24 07:53 White Blood Count 9.6 10^3/uL (4.4-10.8) Medications Medications Dose Ordered Sig/Brenda Route Start Time Stop Time Status Last Admin Dose Admin Ketorolac Tromethamine 60 mg ONCE ONCE IM 11/27/24 08:00 11/27/24 08:01 DC 11/27/24 07:53 Departure 1 Departure Time of Disposition: 09:44 Impression: Primary Impression: Kidney calculi Additional Impressions: Bilateral renal cysts Liver cyst Disposition: 04 [facility] Condition: Stable Additional Instructions: INSTRUCTIONS: FOLLOW-UP WITH PCP IN 1 TO 2 DAYS. TAKE MEDICATIONS PRESCRIBED. RETURN TO ED FOR ANY NEW OR WORSENING SYMPTOMS. e-Prescriptions Tamsulosin Hcl (Flomax) 0.4 Mg Cap 1 CAP PO DAILY, #30 CAP Prov: SALAZAR GANNON 11/27/24 Ibuprofen (Ibuprofen) 800 Mg Tab 1 TAB PO TID, #30 TAB Prov: SALAZAR GANNON 11/27/24 Discharged With: Self Critical Care Note Critical Care Time?: No Stability Stability form required: No Heart Score Heart Score: Heart Score Response (Comments) Value History N/A 0 EKG N/A 0 Age N/A 0 Risk Factors N/A 0 Troponin N/A 0 Total 0 I personally scribed for SALAZAR GANNON ([email or web address]) on 11/27/24 at 07:50. Electronically submitted by Pavan Marques ([email or web address]). I personally scribed for SALAZAR GANNON ([email or web address]) on 11/27/24 at 07:53. Elect ronically submitted by Pavan Marques ([email or web address]). I personally scribed for SALAZAR GANNON ([email or web address]) on 11/27/24 at 09:21. E lectronically submitted by Pavan Marques ([email or web address]). I personally scribed for SALAZAR GANNON ([email or web address]) on 11/27/24 at 09:39. Electronically submitted by Pavan Marques ([email or web address]). SALAZAR GANNON Nov 27, 2024 07:50
[2024-11-27] MEDS: KETOROLAC TROMETH 60MG/2ML VIAL IM ONE (07:53)
[2024-11-27 08:05] LABS: Hematocrit 44.1 % (36.0-46.0); Hemoglobin 14.9 g/dL (12.2-16.2); Mean Corpuscular Hemoglobin 29.1 pg (28.0-32.0); Mean Corpuscular Volume 86.3 fL (80.0-100.0); Nucleated Red Blood Cells % 0.1 %
[2024-11-27 08:20] LABS: Urine Protein, UAD Negative (Negative)
[2024-11-27 08:44] LABS: Alanine Aminotransferase 29 U/L (7-40); Albumin 4.8 g/dL (3.2-4.8); Alkaline Phosphatase 82 U/L (46-116); Anion Gap 5 (5-15); BUN/Creatinine Ratio 15.5 (10.0-20.0); Bilirubin, Total 0.4 mg/dL (0.2-1.0); Blood Urea Nitrogen 11 mg/dL (9-23); Calcium 9.7 mg/dL (8.7-10.4); Carbon Dioxide 27 mmol/L (20-31); Glucose 103 mg/dL (74-106); Potassium 4.4 mmol/L (3.5-5.1); Sodium 140 mmol/L (136-145); Total Protein 7.9 g/dL (5.7-8.2)
[2024-11-27 08:46] LABS: Chloride 108 mmol/L (98-107)
[2024-11-27 09:09] LABS: Lipase 37 U/L (12-53)
--- NOTE | 2024-11-27 09:17 | DVH ---
CLINICAL INFORMATION: 59 years old, Female; MIDDLE BACK PAIN TO EPIGASTRIC.. TECHNIQUE: Grayscale sonographic imaging of the abdomen was performed, assisted by color Doppler richard hnique. COMPARISON: US GALLBLADDER on DOS: 08/27/22, ABPL on DOS: 07/31/21, CT ABD PELVIS WO CONTRAST on DOS: FINDINGS: The gallbladder wall measures 2.6 mm in thickness, within normal limits. No stones are s een. Negative reported sonographic Fernandes's sign. The common bile duct measures 6.0 mm in diameter, within normal limits. The liver is normal in size. Increased echogenicity of the liver suggesting fatty infiltration. Cys t in the left hepatic lobe measures up to 1.1 cm. The pancreas is partly obscured, likely by bowel gas. The visualized portions appear normal. The right kidney measures 9.1 cm. There is no hydronephrosis. Normal cortical echogenicity and cor tical thickness. 1.3 cm cyst in the superior pole. Echogenic focus in the superior pole of the right kidney, possible small nonobstructing calculus. The left kidney measures 9.9 cm. There is no hydronephrosis. Normal cortical echogenicity and tamia ical thickness. Multiple cysts in the left kidney, with the largest measuring up to 1.7 cm at the mid pole. Small echogenic focus in the midpole of the left kidney, possibly small nonobstructing calculus . The spleen measures was not imaged. Visualized portions of the IVC appear patent. Aorta was not evaluated. IMPRESSION: 1. No sonographic evidence of acute cholecystitis. 2. Hepatic steatosis. Small hepatic cyst. 3. Bilateral renal cysts. Small echogenic foci in both kidneys, possible nonobstructing renal calculi .
[2024-11-27] MEDS ORDERED: IBUP-1456 PO (09:42)
[2024-11-27 09:48] VITALS: BP 152/76; PULSE 75; RESP 18; TEMP 97.6; O2SAT 99
== END 2024-11-27 09:49 ==
LOC: ER 07:19
DX: N20.0 Calculus of kidney (principal); N28.1 Cyst of kidney, acquired; K76.0 Fatty (change of) liver, not elsewhere classified; I10 Essential (primary) hypertension; E03.9 Hypothyroidism, unspecified; F17.210 Nicotine dependence, cigarettes, uncomplicated; Z87.442 Personal history of urinary calculi; Z88.0 Allergy status to penicillin; Z98.51 Tubal ligation status
CPT/HCPCS: 36415; 76700; 80053; 81001; 83690; 85025; 96372; 99285; J1885